=== PATIENT | male | born 1955 | race Caucasian/White ===

== ENCOUNTER → 2016-10-25 | Outpatient (CLI) | payer OTHER ==
[~2016-10-25] MED LIST: ASPI81TA28 PO; LAMO100T16 PO; PRLSR20 PO
--- NOTE | 2016-10-25 10:43 | DIAGNOSTIC IMAGING REPORT ---
RIGHT SHOULDER MIN 2 VIEWS ROUTINE CLINICAL HISTORY: M25.519 Shoulder pain Right pain COMPARISON: None. DISCUSSION: Minimal/mild degenerative changes of the articular surface of the glenoid. Subtle Hill-Sachs type deformity. Minimal degenerative change acromioclavicular joint. No abnormal soft tissue calcifications. There is no evidence for soft tissue swelling. IMPRESSION: Minimal/mild degenerative change. No acute process. Electronically signed by: Samson Paulino M.D. 10/25/2016 10:41 AM Dictated Date/Time: 10/25/2016 10:40 AM
--- NOTE | 2016-10-25 10:45 | DIAGNOSTIC IMAGING REPORT ---
RIGHT KNEE 1 OR 2 VIEWS ROUTINE CLINICAL HISTORY: Chronic right knee pain. COMPARISON: MRI of the right knee since January 05, 2013. FINDINGS: There is mild lateral patellar tilt. There is complete loss of the patellofemoral joint space. Medial and lateral compartment joint spaces are preserved. No fracture or joint effusion is present. There is mild osteophytosis within the medial and lateral compartments with moderate osteophytosis within the patellofemoral compartment. IMPRESSION: 1. Complete loss of the patellofemoral joint space which favors severe osteoarthritis. CPPD arthropathy could appear similar. 2. No acute fracture or joint effusion of the right knee. Electronically signed by: Keenan Appiah M.D. 10/25/2016 10:44 AM Dictated Date/Time: 10/25/2016 10:41 AM
== END | disposition home or self-care (01) ==
LOC: C.RADBC 09:59
PROVIDERS: ATTEND Physician Assistant Medical
DX: M25.561 Pain in right knee (principal); M25.519 Pain in unspecified shoulder; M22.2X1 Patellofemoral disorders, right knee

== ENCOUNTER → 2016-11-11 | Outpatient (CLI) | payer OTHER ==
[2016-11-11 11:40] LABS: ALT/SGPT 28 U/L (12-78); AST/SGOT 19 U/L (15-37); BLOOD UREA NITROGEN 13 mg/dl (7-18); BUN/CREATININE RATIO 12.9 (10-20); CALCIUM 8.8 mg/dl (8.5-10.1); CARBON DIOXIDE 26 mmol/L (21-32); CHLORIDE 109 mmol/L (98-107); CREATININE 0.97 mg/dl (0.60-1.40); GLUCOSE 139 mg/dl (70-99); SODIUM 141 mmol/L (136-145)
[2016-11-11 11:42] LABS: ALB/GLOB RATIO 1.4 (0.9-2); ALKALINE PHOSPHATASE 100 U/L (45-117)
== END | disposition home or self-care (01) ==
LOC: C.LABBC 08:15
PROVIDERS: ATTEND Student in an Organized Health Care Education/Training Program
DX: Z79.899 Other long term (current) drug therapy (principal)

== ENCOUNTER → 2016-11-12 | Outpatient (CLI) | payer OTHER | END | disposition home or self-care (01) | LOC: C.LABBC 11:03 | PROVIDERS: ATTEND Student in an Organized Health Care Education/Training Program | DX: F31.9 Bipolar disorder, unspecified (principal) ==

== ENCOUNTER → 2017-08-20 | Outpatient (CLI) | payer OTHER ==
[~2017-08-20] MED LIST changes: +OPTIRAY 320 IV PRN
--- NOTE | 2017-08-20 10:49 | DIAGNOSTIC IMAGING REPORT ---
CT SCAN OF THE CHEST WITH IV CONTRAST CLINICAL HISTORY: Unspecified abnormal chest x-ray. COMPARISON STUDY: Chest x-ray dated 04/22/2015. Abdominal CT dated 09/28/2008. TECHNIQUE: Following the IV administration of 94 cc of Optiray 320, CT scan of the thorax was performed from the thoracic inlet to the upper abdomen. Images are reviewed in the axial, sagittal, and coronal planes. IV contrast was administered without complication. A dose lowering technique was utilized adhering to the principles of ALARA. CT DOSE: 424.97 mGycm FINDINGS: Thyroid: Imaged portions of the thyroid gland are normal in size and attenuation. Thoracic aorta: The thoracic aorta is normal in caliber and demonstrates standard 3-vessel arch anatomy. No dissection is seen. Pulmonary vasculature: The pulmonary trunk is normal in caliber. There are no filling defects identified in the central pulmonary vessels to indicate pulmonary embolus. Note that this examination was not protocoled for evaluation of the pulmonary arteries. Heart: The heart is top normal in size and without pericardial effusion. There are coronary artery calcifications. Lungs and pleural spaces: The trachea and central airways are clear. There is a bilobed appearing irregular airspace opacity in the subpleural left lower lobe seen on image #163. This measures approximately 6.3 x 2.5 x 3.5 cm in aggregate dimension. No additional pulmonary lesion is seen. The right lung appears clear. No pleural effusion is identified. Mediastinum: There are scattered subcentimeter mediastinal lymph nodes. These are not pathologically enlarged by size criteria. Sandy: Clear. Axillae: There is no axillary lymphadenopathy. Upper abdomen: 11 mm cyst is identified in the upper pole of the right kidney. Additional subcentimeter cortical hypodensity in the right upper pole also likely represents a cyst but is too small for definitive characterization. Diverticulosis is noted in the partially imaged left colon. Skeletal structures: There is a mild compression deformity of T7. No lytic or blastic bony lesions are seen. Arthritic change is noted in the shoulders. IMPRESSION: 1. There is an irregular bilobed airspace opacity in the subpleural left lower lobe which measures approximately 6.3 x 2.5 x 3.5 cm in aggregate dimension. This is pathologically indeterminant, and could represent atelectasis, scarring/fibrosis, pulmonary infarct, an infectious/inflammatory pneumonitis, or neoplasm. Short-term (4-8 week) follow-up chest CT is recommended for reassessment as neoplasm is the diagnosis of exclusion. 2. The right lung appears clear. 3. There is no mediastinal or hilar adenopathy. Electronically signed by: Ganga Brown M.D. 08/20/2017 10:47 AM Dictated Date/Time: 08/20/2017 10:33 AM
== END | disposition home or self-care (01) ==
LOC: C.CTS 10:04
PROVIDERS: ATTEND Nurse Practitioner Family
DX: R93.8 Abnormal findings on diagnostic imaging of other specified body structures (principal)

== ENCOUNTER 2023-07-19 10:20 | Inpatient (IN) ==
[2023-07-19] MEDS: HEPARIN SOD (PORCINE) 1000 UNIT/ML IV ONE (10:23)
--- NOTE | 2023-07-19 10:34 | Emergency Department Note ---
Impression & Plan ST elevation (STEMI) myocardial infarction, Chest pain ED Provider Note HISTORY OF PRESENT ILLNESS: Patient is a 68-year-old male presenting with chest pain. Patient was a prehospital heart alert. He developed substernal chest pain about 30 minutes prior to arrival in the emergency department. 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 He called 911. He has no cardiac history. He takes a baby aspirin daily. He was given 3 sublingual nitro prehospital and a total of 324 mg of aspirin prehospital. On arrival to the ER, he is still complaining of chest pressure. ROS: as above PHYSICAL EXAM: Constitutional: Patient appears in no acute distress. HENT: Head: Normocephalic and atraumatic. Eyes: EOMI, PERRL Mouth/Throat: Mucous membranes moist. Neck: Trachea midline. Neck supple. Cardiovascular: RRR, No murmurs, rubs or gallops. Intact distal pulses. Pulmonary/Chest: No respiratory distress. Breath sounds clear and equal bilaterally. No wheezes or rales. Abdominal: Abdomen soft, no tenderness, rebound or guarding. Musculoskeletal: No edema, tenderness or deformity noted. Skin: Warm and dry. No rash, erythema, pallor or cyanosis Psychiatric: Appropriate mood and affect for situation. Neurological: Alert and keenly responsive. CN II-XII grossly intact, moving all extremities equally and fully. MDM: - Vitals signs showed hypertension. - History obtained via patient. History as above. - Chronic conditions affecting care: pre-diabetes; HLD - Differential diagnoses include, but are not limited to: Acute coronary syndrome; pulmonary embolism; dissection; tension pneumothorax; esophageal rupture; pneumonia - Patient was alerted as a HEART alert pre-hospital. Initial prehospital EKG reviewed by myself showed ST elevations in leads III and depressions in aVL and V2. Patient was still having active chest pain per model artists', so heart alert was activated based on this EKG. A repeat EKG done by the model artists' and route to the hospital showed worsening ST elevation in leads III and worsening depressions in aVL, V1 and V2. - Order placed for continuous cardiac monitoring. At this time, monitor showed rate of 89 bpm with normal sinus rhythm, per my interpretation. - Discussed case with apprentice stylist, Dr. Mayen at 10:15 AM prior to patient's arrival and he reviewed the EKGs. He requested a 5000 mg bolus of heparin be given to patient on arrival. - EKG on arrival to ER at 10:[address] elevation in lead III and aVF, with progressing depressions in leads I and aVL. Patient still having active chest pain on arrival to the ER. Patient was given 5000 mg bolus of heparin. - Discussed with Dr. Mayen if he wanted brilinta pre-cath lab radiology technician, but he wished to hold off. - Patient was given 50 mcg IV fentanyl x2 in ER for chest pain while awaiting cath lab radiology technician team. - Patient taken to cath lab radiology technician at 10:50 AM. - Discussed case with Dr. Osorio with [facility] hospitalist group for admission post- cath. I have personally spent 32 minutes of critical care time in the direct management of this patient. This includes bedside care, interpretation of diagnostic studies, and testing, discussion with consultants, patient, and family members, and other required patient management activities. This 32 minutes is in excess of all separately billable procedures. ASSESSMENT AND PLAN: Diagnosis: STEMI; chest pain Plan: to cath lab radiology technician then admit Past Med/Surg History Medical History Bipolar disorder, unspecified BPH (benign prostatic hyperplasia) SLOW URINE STREAM PER PT Gastro-esophageal reflux History of back problems History of COVID-19 x3; most recent May 12, 2022 > home test > cough, body aches, loss of taste and smell > all resolved Hx of Lyme disease couple years ago, no residual symptoms Hypercholesterolemia BORDERLINE Osteoarthritis Pre-diabetes diet controlled Surgical History History of appendectomy 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 History of colonoscopy History of esophagogastroduodenoscopy (EGD) HX ESOPHAGEAL STRETCHING History of repair of right rotator cuff History of tooth extraction S/P shoulder surgery LEFT SHOULDER 07/30/22 Family History Mother Breast cancer Other Family history of melanoma Denies family history of Colon cancer Ovarian cancer Prostate cancer Myocardial infarction Social History Smoking Status: Never smoker Tobacco Type: Cigarettes packs per day: 2.5; Second Hand Exposure: No; Do You Dip or Chew Tobacco: No; Hx Alcohol Use: Yes Alcohol type: hard liquor Alcohol Intake Frequency: Monthly or Less Hx Substance Use: No Preferred Language: Austrian Communication Ability: Effective Visual Impairment: No Limitations Hearing Ability: Normal Vice President Tax Required: No Beliefs That Will Affect Care: None marital status: Current Living Situation: Spouse, Parent and Family current occupational status: employed 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[employer] How 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 do You have: 5 Feels Safe at Home: Yes Childhood Exposure to Second-Hand Smoke: No Diet: regular caffeine: Yes during the past year weight has: remained stable Dental Care, Regularly: Yes Physical Activity Frequency: Daily Seatbelt Use: always Sunscreen Use: Yes Assistive Devices: Denture - Upper and Glasses Allergies Allergies Allergy/AdvReac Type Severity Reaction Status Date / Time No Known Allergies Allergy Unknown Verified 02/24/23 09:25 Home Meds Home Medications Medication Instructions Recorded Confirmed aspirin 81 mg tablet,delayed 81 mg PO QAM 09/13/19 02/24/23 release (Adult Aspirin Regimen) bupropion HCl 100 mg tablet 100 mg PO BID 09/13/19 02/24/23 ascorbic acid (vitamin C) 500 mg 500 mg PO HS 04/13/21 02/24/23 tablet (Vitamin C) buspirone 10 mg tablet 10 mg PO BID 04/13/21 02/24/23 omega-3 fatty acids 1,000 mg PO QAM 04/13/21 02/24/23 saw palmetto 80 mg capsule 160 mg PO HS 04/13/21 02/24/23 calcium polycarbophil 625 mg 500 mg PO BID 07/19/22 02/24/23 tablet (Fiber-Lax) lactobacillus comb no.10 20 20,000 mmu cells PO QAM 07/19/22 02/24/23 billion cell capsule (Probiotic) mecobalamin (vitamin B12) 1,000 5,000 mcg sublingual Q2D 07/19/22 02/24/23 mcg disintegrating tablet,sublingual vitamin E 400 unit tablet 45 mg PO BID 07/19/22 02/24/23 hydroxyzine HCl 50 mg tablet 50 mg PO HS 02/17/23 02/24/23 lamotrigine 150 mg tablet 150 mg PO BID 02/17/23 02/24/23 (Lamictal) Previous Rx's Medication Instructions Recorded epinephrine 0.3 mg/0.3 mL 0.3 mg (0.3 mL) IM Q10M PRN 08/27/22 injection, auto-injector (EpiPen anaphylaxis #2 ea 2-[place]) pantoprazole 40 mg tablet,delayed 40 mg PO QAM #90 tabs 06/24/23 release Results & Data (ED) Vital Signs Vital Signs - 24 hr 07/19/23 10:12 07/19/23 10:24 07/19/23 10:28 Temperature 36.5 C Temperature Source Oral Pulse Rate 69 89 Respiratory Rate 15 Blood Pressure 141/107 H Blood Pressure Mean 118 Pulse Oximetry 98 Oxygen Delivery Method Room Air Sepsis Recent Fever Within 48 Hours Yes Sepsis New/Unexplained Change in Mental Status No Sepsis Action Taken by Nursing No Action Required 07/19/23 10:28 Temperature Temperature Source Pulse Rate Respiratory Rate Blood Pressure Blood Pressure Mean Pulse Oximetry Oxygen Delivery Method Room Air Sepsis Recent Fever Within 48 Hours Sepsis New/Unexplained Change in Mental Status Sepsis Action Taken by Nursing Laboratory Data 07/19/23 10:31 07/19/23 10:31 Administered Medications Discontinued Medications Fentanyl Citrate (Fentanyl Citrate Pf 100 Mcg/2 Ml Vial) 50 mcg IV NOW STA Stop: 07/19/23 10:42 Last Admin: 07/19/23 10:39 Dose: 50 mcg Documented By: JUAN MANUEL Imaging Data Radiologist's Impression: Chest X-Ray 07/19/23 10:28 XR chest 1V portable CLINICAL HISTORY: Chest pain, nonspecific COMPARISON STUDY: Chest radiograph August 21, 2022. Chest CT April 01, 2023. FINDINGS: Low lung volumes are unchanged. There is no pneumothorax or pleural effusion. A 5 mm right upper lobe nodule is indeterminate but remains unchanged. Stable cardiomediastinal silhouette. There is no evidence for pulmonary edema or pneumonia. IMPRESSION: No acute cardiopulmonary findings. ACT 112: Negative or not required by law. Electronically signed by: Keenan Appiah M.D. 07/19/2023 10:48 AM Discharge Plan Visit Data Chief Complaint: Heart Alert ED Provider: Marla Sterling Discharge Problem: ST elevation (STEMI) myocardial infarction, Chest pain Forms Stand Alone Forms: [facility] [employer] Prescriptions Prescriptions: No Action epinephrine [EpiPen 2-[place]] 0.3 mg/0.3 mL auto-injector 0.3 mg IM Q10M PRN (Reason: anaphylaxis) Qty: 2 0RF Rx Instructions: for 2 doses pantoprazole 40 mg tablet,delayed release (DR/EC) 40 mg PO QAM Qty: 90 3RF aspirin [Adult Aspirin Regimen] 81 mg tablet,delayed release (DR/EC) 81 mg PO QAM bupropion HCl 100 mg tablet 100 mg PO BID saw palmetto 80 mg Capsule 160 mg PO HS ascorbic acid (vitamin C) [Vitamin C] 500 mg Tablet 500 mg PO HS buspirone 10 mg Tablet 10 mg PO BID omega-3 fatty acids Capsule 1,000 mg PO QAM lamotrigine [Lamictal] 150 mg Tablet 150 mg PO BID hydroxyzine HCl 50 mg Tablet 50 mg PO HS mecobalamin (vitamin B12) 1,000 mcg tablet,disintegrating 5,000 mcg sublingual Q2D Rx Instructions: place tablet under tongue and allow to dissolve for at least30 secs before swallowing calcium polycarbophil [Fiber-Lax] 625 mg Tablet 500 mg PO BID vitamin E 400 unit Tablet 45 mg PO BID Probiotic 20 billion cell Capsule 20,000 mmu cells PO QAM Rx Instructions: administer with a meal Referrals Referrals: Joby Saha III, CRNP [Primary Care Provider] -
[2023-07-19] MEDS: fentaNYL citrate PF 100 MCG/2 ML VIAL IV STA ×2 (10:39→10:50)
--- NOTE | 2023-07-19 10:49 | XRay Report ---
XR chest 1V portable CLINICAL HISTORY: Chest pain, nonspecific COMPARISON STUDY: Chest radiograph August 21, 2022. Chest CT April 01, 2023. FINDINGS: Low lung volumes are unchanged. There is no pneumothorax or pleural effusion. A 5 mm right upper lobe nodule is indeterminate but remains unchanged. Stable cardiomediastinal silhouette. There is no evidence for pulmonary edema or pneumonia. IMPRESSION: No acute cardiopulmonary findings. ACT 112: Negative or not required by law. Electronically signed by: Keenan Appiah M.D. 07/19/2023 10:48 AM
[2023-07-19 11:06] LABS: Basophils # (auto) 0.05 K/uL (0.00-0.20); Basophils % (auto) 0.8 %; Eosinophils # (auto) 0.22 K/uL (0.00-0.50); Eosinophils % (auto) 3.5 %; Hemoglobin 15.5 g/dl (14.0-18.0); Immature Granulocytes # (auto) 0.06 K/uL (0.01-0.20); Immature Granulocytes % (auto) 0.9 %; Lymphocytes # (auto) 1.86 K/uL (1.20-3.40); Lymphocytes % (auto) 29.2 %; Mean Corpuscular Hemoglobin 28.8 pg (25.0-34.0); Mean Corpuscular Volume 87.4 fL (80.0-100.0); Mean Platelet Volume 9.7 fL (9.4-12.4); Monocytes # (auto) 0.69 K/uL (0.11-0.59); Monocytes % (auto) 10.8 %; Neutrophils # (auto) 3.49 K/uL (1.40-6.50); Neutrophils % (auto) 54.8 %; Platelet Count 296 K/uL (130-400); Red Blood Count 5.38 M/uL (4.70-6.10); White Blood Count 6.37 K/ul (4.8-10.8)
[2023-07-19 11:14] LABS: Albumin Level 4.4 gm/dl (3.4-5.0); BUN Creatinine Ratio 19.2 (10-20); Bilirubin,Total 0.6 mg/dl (0.2-1.0); Calcium 9.3 mg/dl (8.6-10.3); Creatinine Clr Calc Pharmacy 75.8 ml/min; Est GFR (African American) 91.6 ml/min; Globulin 2.2 gm/dl (2.5-4.0); Magnesium 2.1 mg/dl (1.7-2.4); Potassium 4.4 mmol/L (3.5-5.1); Total Protein 6.6 gm/dl (6.0-8.3)
[2023-07-19 11:19] LABS: Troponin I High Sensitivity 11.5 pg/ml (0-20)
[2023-07-19 11:29] LABS: Thyroid Stimulating Hormone 2.157 uIu/ml (0.300-4.500)
--- NOTE | 2023-07-19 11:33 | Pre Anesthesia Assessment ---
Date of Service July 19, 2023 Pre Sedation Assessment Vital Signs Temp Pulse Resp BP Pulse Ox O2 Del Method 07/19/23 10:45 69 14 97 07/19/23 10:45 157/95 H 07/19/23 10:30 141/107 H 07/19/23 10:30 83 23 98 07/19/23 10:28 Room Air 07/19/23 10:28 Room Air 07/19/23 10:24 81 18 98 07/19/23 10:24 89 07/19/23 10:23 158/99 H 07/19/23 10:12 36.5 C 69 15 141/107 H 98 Cardiovascular RRR, no murmur, no edema Respiratory normal respiratory effort, lungs clear to auscultation Pre-Sedation Airway Assessment Smoking Status: Never smoker Mallampati Class: II Class II Notes The planned sedation has been discussed with the patient. Informed Consent was obtained. I have identified the patient, determined the appropriateness of sedation and have assessed the patient immediately prior to the procedure. All medicine(s) and interventions are by my order.
--- NOTE | 2023-07-19 11:34 | Post Anesthesia Assessment ---
Date of Service July 19, 2023 Post Sedation Assessment Vital Signs Temp Pulse Resp BP Pulse Ox O2 Del Method 07/19/23 10:45 69 14 97 07/19/23 10:45 157/95 H 07/19/23 10:30 141/107 H 07/19/23 10:30 83 23 98 07/19/23 10:28 Room Air 07/19/23 10:28 Room Air 07/19/23 10:24 81 18 98 07/19/23 10:24 89 07/19/23 10:23 158/99 H 07/19/23 10:12 36.5 C 69 15 141/107 H 98 Recovery Score Activity: Moves 4 extremities Respiration: Deep Breath/Cough Circulation: +/-20% PreAnes Value Consciousness: Fully Awake Oxygen Saturation: > 92% On Room Air Discharge Sedation Level of Care: Higher Level of Care Post Sedation Plan On clinical assessment, the patient appears to have tolerated the sedation without complications. Patient is recovering as anticipated. Patient will continue to be monitored by nursing and may be discharged when sedation discharge criteria are met per below protocol. Upon Completions of procedure up to 15 minutes continue every 5 minute vital signs and the P.A.R. score; then discharge to a Phase I or Fast Track to Phase II per the following guidelines: * Discharge Patient to appropriate Phase II area if PAR is 8 or greater or return to pre- procedure baseline. The post - procedure orders will be as directed. * If PAR score is less than 8 or not return to pre-procedure baseline then patient will follow Phase I monitoring till PAR is reached for Phase II. The Phase I may be done in procedure room or may call to secure a Phase I area. * If naloxone or flumazenil are used for reversal, hold in Phase I for c ontinued monitoring from when last reversal dose was given for a minimum of 60 minutes or longer pending the nurse and/or physician discretion of patient condition before discharge to Phase II. Please call the Sedation Physician to re-evaluate and complete post-note for discharge to Phase II area. Do NOT discharge from procedure sedation or Phase 1 until post- sedation evaluation note is complete by procedure /sedation MD Sedation Discharge Instructions to be given to the patient at discharge to home.
[2023-07-19 11:41] LABS: Partial Thromboplastin Ratio > 4.9; Prothrombin Time 10.8 Seconds (9.0-12.0)
--- NOTE | 2023-07-19 11:42 | Cardiac Catheterization ---
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 Cardiac Status Clinical evaluation leading to the procedure CAD Presenation: STEMI Anginal Classification: CCS IV Heart Failure: No Cardiogenic Shock within 24 Hours: No Cardiac Arrest within 24 Hours: No Diagnostic Physicians Name: Moises Mayen MD Closure Device Recommendations: PCI without planned CABG Cardiac Cath Procedure Full Procedure Date July 19, 2023 Pre-Procedure Diagnosis Pre-Procedure Diagnosis: STEMI AUC Score AUC Score: 9 Post-Procedure Diagnosis Post-Procedure Diagnosis: Successful PCI Procedure(s) Performed Procedure(s) Performed: Coronary Angiography and Drug Eluting Stent Registered Massage Therapist Moises Mayen MD Estimated Blood Loss Estimated Blood Loss: None Summary of Findings 68-year-old gentleman with severe substernal crushing chest pain, prehospital EKG showed evidence of inferior ST segment elevations with reciprocal depression s. Emergency cardiac catheterization revealed occluded distal right coronary artery, he had successful PCI performed with placement of 3 mm x 18 mm [place] drug-eluting stent, also had a 80% stenosis in the mid right posterior descending artery had 2.5 mm x 18 mm drug-eluting stent placed in right posterior descending artery. He was also noted to have hazy lesion in his proximal right coronary artery, possible guiding catheter induced dissection in that area which was covered with 4 mm x 15 mm [place] drug-eluting stent. He had excellent angiographic results with SERGIO-3 flow and resolution of his ch est pain symptoms and EKG findings. Left coronary artery circulation showed patent left main artery, mild disease in his left circumflex artery of up to 30% severity. Left anterior descending artery had an eccentric proximal 60 to 70% stenosis with normal flow, diagonal vessel had mid 30% stenosis. LV gram was not performed during the procedure. These findings were discussed with the hospitalist team, patient will be transferred to intensive care unit, he was given Angiomax for the procedure and subsequently loaded with aspirin and Brilinta at the end of the procedure. Hemodynamics Rest Ao:: 159/110 Final Ao: 148/86 LV: not done Recommendations Recommendations: PCI without planned CABG Radiation Exposure (mGy) 1605 Contrast (mls) 120 I attest to the content of the Intraoperative Record and any orders documented therein. Any exceptions are noted below. PG Care Time/CCT Total # of Minutes Spent Total Time Spent with Patient: Total time spent is greater than 50% in coordination of care (as documented) at patient's floor/unit and/or counseling patient:
[2023-07-19 11:48] LABS: Partial Thromboplastin Time > 139 Seconds (21-31)
[2023-07-19] MEDS ORDERED: NITROGLYCERIN SL 0.4 MG/TAB TAB SL PRN (11:48)
[2023-07-19] MEDS: fentaNYL citrate PF 100 MCG/2 ML VIAL ONE ×2 (11:54→12:38)
[2023-07-19] MEDS: OPTIRAY 350 ONE (11:55)
[2023-07-19] MEDS: MIDAZOLAM HCL 1 MG/ML 2ML VIAL ONE (11:55)
[2023-07-19] MEDS: niCARdipine HCL INJ 2.5 MG/ML 10 ML AMP ONE (11:55)
[2023-07-19] MEDS: NITROGLYCERIN/D5W 100MCG/ML 20ML SYR ONE (11:56)
[2023-07-19] MEDS: ONDANSETRON INJ 2 MG/ML 2 ML VIAL ONE (11:57)
[2023-07-19] MEDS: BIVALIRUDIN 250 MG VIAL (CATH LAB ONLY) IV ONE ×2 (11:57→11:58)
[2023-07-19] MEDS: ATROPINE SULFATE 0.1 MG/ML 10ML SYR IV ONE (11:58)
[2023-07-19] MEDS: TICAGRELOR 90 MG TAB ONE (11:58)
--- NOTE | 2023-07-19 12:02 | History & Physical Report ---
Date of Service July 19, 2023 Assessment & Plan (1) ST elevation (STEMI) myocardial infarction: Plan: s/p cardiac catheterization 07/18 with successful PCI to 100% occluded distal RCA with NIMA to distal RCA and x2 NIMA to right PDA ASA, Brillinta, Metoprolol, Atorvastatin Consult cardiology TTE (2) Bipolar disorder, unspecified: Plan: Continue Wellbutrin and Lamictal (3) Gastro-esophageal reflux: Plan: Continue pantoprazole Plan VTE Prophylaxis - dual antiplatelets Diet - heart healthy Disposition - admit to ICU Admission and Anticipated Discharge Date Admission Date: July 19, 2023 History of Present Illness Chief Complaint: Chest pain Primary Care Provider: Joby Saha III, FREDRICK Samson Hooks is a 68-year-old male former smoker who presents to the ER with chest pain radiating to both sides of his chest and left jaw starting at 10 AM this morning. Associated bilateral upper extremity numbness, shortness of breath. No nausea or diaphoresis. Patient was a prehospital heart alert due to ST elevations in inferior leads with reciprocal changes. He was given 324 mg aspirin prior to arrival and x 3.4 nitroglycerin sublingual. In the ER he was taken emergently for cardiac catheterization with 100% occluded RCA and successful PCI with NIMA to RCA and x2 NIMA to PDA. He is chest pain free status post cardiac catheterization. Allergies Allergy/AdvReac Type Severity Reaction Status Date / Time No Known Allergies Allergy Unknown Verified 07/19/23 11:02 Home Medications Medication Instructions Recorded Confirmed Type aspirin 81 mg tablet,delayed 81 mg PO QAM 09/13/19 07/19/23 History release (Adult Aspirin Regimen) bupropion HCl 100 mg tablet 0 mg PO BID 09/13/19 07/19/23 History ascorbic acid (vitamin C) 500 mg 500 mg PO HS 04/13/21 07/19/23 History tablet (Vitamin C) omega-3 fatty acids 1,000 mg PO QAM 04/13/21 07/19/23 History saw palmetto 80 mg capsule 160 mg PO HS 04/13/21 07/19/23 History calcium polycarbophil 625 mg 625 mg PO BID 07/19/22 07/19/23 History tablet (Fiber-Lax) lactobacillus comb no.10 20 20,000 mmu cells PO QAM 07/19/22 07/19/23 History billion cell capsule (Probiotic) mecobalamin (vitamin B12) 1,000 5,000 mcg sublingual Q2D 07/19/22 07/19/23 History mcg disintegrating tablet,sublingual lamotrigine 150 mg tablet 150 mg PO BID 02/17/23 07/19/23 History (Lamictal) pantoprazole 40 mg tablet,delayed 40 mg PO QAM #90 tabs 06/24/23 07/19/23 Rx release buspirone 5 mg tablet 5 mg PO TID PRN Anxiety 07/19/23 07/19/23 History epinephrine 0.3 mg/0.3 mL 0 mg IM Q10M PRN anaphylaxis 07/19/23 07/19/23 History injection, auto-injector (EpiPen 2-[place]) hydroxyzine HCl 10 mg tablet 0 mg PO HS PRN Sleep 07/19/23 07/19/23 History vitamins A,C,I-mtfl-rzidpj 2,148 2 tab PO BID 07/19/23 07/19/23 History mcg-113 mg-45 mg-17.4 mg tablet (PreserVision AREDS) Past Med/Surg History Medical History History of COVID-19 x3; most recent May 12, 2022 > home test > cough, body aches, loss of taste and smell > all resolved Hx of Lyme disease couple years ago, no residual symptoms Pre-diabetes diet controlled History of back problems Osteoarthritis BPH (benign prostatic hyperplasia) SLOW URINE STREAM PER PT Gastro-esophageal reflux Hypercholesterolemia BORDERLINE Bipolar disorder, unspecified Surgical History S/P shoulder surgery LEFT SHOULDER 07/30/22 History of appendectomy History of tooth extraction History of repair of right rotator cuff History of esophagogastroduodenoscopy (EGD) HX ESOPHAGEAL STRETCHING History of colonoscopy 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 Family History Mother Breast cancer Other Family history of melanoma Denies family history of Colon cancer Ovarian cancer Prostate cancer Myocardial infarction Social History (Updated 07/19/23 @ 21:00 by Primo Osorio MD) Smoking Status: Former smoker Tobacco Type: Cigarettes packs per day: 2.5; Second Hand Exposure: No; Do You Dip or Chew Tobacco: No; Hx Alcohol Use: No Hx Substance Use: No Preferred Language: Telugu Communication Ability: Effective Visual Impairment: No Limitations Hearing Ability: Normal Cereal Chemist Required: No Beliefs That Will Affect Care: None marital status: Current Living Situation: Spouse current occupational status: employed 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[employer] How 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 do You have: 5 Feels Safe at Home: No Is there a partner from a previous relationship who is making you feel unsafe now?: No Any Concerns about Your Family Situation: No Would You Like to Speak to Someone About Your Situation: No Childhood Exposure to Second-Hand Smoke: No Diet: regular caffeine: Yes during the past year weight has: remained stable Dental Care, Regularly: Yes Physical Activity Frequency: Daily Seatbelt Use: always Sunscreen Use: Yes Assistive Devices: Denture - Upper and Glasses Review of Systems Review of Systems: All systems reviewed & are unremarkable except as noted in HPI & below Physical Exam Constitutional: WD/WN, vitals as above Eyes: + anicteric sclerae; normal pupil size ENMT: external ear and nose normal, oropharynx normal Respiratory: normal respiratory effort, lungs clear to auscultation Cardiovascular: RRR, no murmur, no edema Vessels: posterior tibial pulses present and dorsalis pedis pulses present Gastrointestinal (Abdomen): normal bowel sounds, soft, nontender, no hepatosplenomegaly Musculoskeletal: no cyanosis or clubbing, extremities motor strength 5/5 Skin: no rashes, warm and dry Neurologic: moves all extremities and awake; not confused Psychiatric: A+Ox3, euthymic affect Genitourinary: no CVA tenderness Results & Data Results & Data Vital Signs (Past 12 Hours) Vital Signs Temp Pulse Resp BP Pulse Ox O2 Del Method 07/19/23 10:45 69 14 97 07/19/23 10:45 157/95 H 07/19/23 10:30 141/107 H 07/19/23 10:30 83 23 98 07/19/23 10:28 Room Air 07/19/23 10:28 Room Air 07/19/23 10:24 81 18 98 07/19/23 10:24 89 07/19/23 10:23 158/99 H 07/19/23 10:12 36.5 C 69 15 141/107 H 98 Laboratory Results Abnormal lab results 07/19/23 07/19/23 Range/Units 10:31 11:21 Gilliam # (Auto) 0.69 H (0.11-0.59) K/uL APTT > 139 H* (21-31) Seconds Activ Coag Time Kaolin > 1000 H (94-140) SECONDS Glucose 133 H (70-99(Fasting)) mg/dl Alkaline Phosphatase 109 H (34-104) U/L Globulin 2.2 L (2.5-4.0) gm/dl Lipase 83 H (11-82) U/L Diagnostic Findings XR chest 1V portable CLINICAL HISTORY: Chest pain, nonspecific COMPARISON STUDY: Chest radiograph August 21, 2022. Chest CT April 01, 2023. FINDINGS: Low lung volumes are unchanged. There is no pneumothorax or pleural effusion. A 5 mm right upper lobe nodule is indeterminate but remains unchanged. Stable cardiomediastinal silhouette. There is no evidence for pulmonary edema or pneumonia. IMPRESSION: No acute cardiopulmonary findings. Medications Administered ER Medications Given: Heparin 5000 units IV bolus Fentanyl 50 mcg IV Normal saline 500ml bolus ECG Rate (beats per minute): 73 Rhythm: normal sinus Findings: + ST elevation (Inferior) Comparison ECG Date: from (July 11, 2022) Change: the following changes noted (ST elevation now present inferiorly with reciprocal changes laterally) Code Status & VTE Plan Code Status Full VTE Prophylaxis Plan VTE Prophylaxis will be ordered: Yes PG Care Time/CCT Total # of Minutes Spent Total Time Spent with Patient: Total time spent is greater than 50% in coordination of care (as documented) at patient's floor/unit and/or counseling patient: Coding Level of Care Code 98345 INT INP/OBS CARE 2/55MIN Diagnoses ST elevation (STEMI) myocardial infarction I21.3 Bipolar disorder, unspecified F31.9 Gastro-esophageal reflux K21.9
--- NOTE | 2023-07-19 12:20 | XRay Report ---
SUPINE PORTABLE AP CHEST RADIOGRAPH CLINICAL HISTORY: Chest pain, nonspecific COMPARISON STUDY: Chest radiograph performed earlier today. FINDINGS: Lung volumes are normal. Lungs are clear. There is no pneumothorax or pleural effusion. Sta ble cardiomediastinal silhouette. There is no evidence for pulmonary edema. IMPRESSION: No acute cardiopulmonary findings. ACT 112: Negative or not required by law. Electronically signed by: Keenan Appiah M.D. 07/19/2023 12:19 PM
[2023-07-19 12:29] LABS: Basophils # (auto) 0.05 K/uL (0.00-0.20); Basophils % (auto) 0.6 %; Eosinophils # (auto) 0.09 K/uL (0.00-0.50); Eosinophils % (auto) 1.1 %; Hematocrit (blood only) 44.3 % (42.0-52.0); Hemoglobin 14.8 g/dl (14.0-18.0); Immature Granulocytes # (auto) 0.06 K/uL (0.01-0.20); Immature Granulocytes % (auto) 0.7 %; Lymphocytes # (auto) 0.96 K/uL (1.20-3.40); Lymphocytes % (auto) 11.5 %; Mean Corpuscular Hemoglobin 29.3 pg (25.0-34.0); Mean Corpuscular Hgb Conc 33.4 g/dL (32.0-36.0); Mean Corpuscular Volume 87.7 fL (80.0-100.0); Mean Platelet Volume 9.5 fL (9.4-12.4); Monocytes # (auto) 0.63 K/uL (0.11-0.59); Monocytes % (auto) 7.5 %; Neutrophils # (auto) 6.57 K/uL (1.40-6.50); Neutrophils % (auto) 78.6 %; Platelet Count 231 K/uL (130-400); RDW Coefficient of Variation 12.9 % (11.5-14.5); RDW Standard Deviation 41.4 fL (36.4-46.3); Red Blood Count 5.05 M/uL (4.70-6.10); White Blood Count 8.36 K/ul (4.8-10.8)
[2023-07-19] MEDS: HEPARIN 25000 UNIT/500 ML D5W IV ONE (12:37)
[2023-07-19] MEDS: SODIUM CHLORIDE 0.9% 500 ML IV ONE (12:38)
[2023-07-19] MEDS: HEPARIN SOD (PORCINE) 1000 UNIT/ML ONE (12:38)
[2023-07-19 12:39] LABS: Albumin Level 4.1 gm/dl (3.4-5.0); BUN Creatinine Ratio 19.8 (10-20); Bilirubin,Total 0.5 mg/dl (0.2-1.0); Calcium 8.6 mg/dl (8.6-10.3); Chol HDL Ratio 4.4 (0-5); Creatinine Clr Calc Pharmacy 73.3 ml/min; Est GFR (African American) 101.4 ml/min; Est GFR (Non-African American) 87.5 ml/min; Potassium 4.3 mmol/L (3.5-5.1); Total Protein 6.1 gm/dl (6.0-8.3)
[2023-07-19] MEDS ORDERED: BIVALIRUDIN 250 MG in DEXTROSE 5% 50 ML IV SCH (12:45)
[2023-07-19] MEDS: ICU Protocol for HYPERglycemia SCH (12:59)
[2023-07-19 13:10] LABS: INR 3.3 (0.9-1.1); Partial Thromboplastin Ratio > 4.9; Prothrombin Time 33.6 Seconds (9.0-12.0)
[2023-07-19 13:16] LABS: Partial Thromboplastin Time > 139 Seconds (21-31)
[2023-07-19] MEDS: ATORVASTATIN 40 MG TAB PO SCH (14:02)
[2023-07-19] MEDS: METOPROLOL TARTRATE 25 MG TAB PO SCH (14:02)
--- NOTE | 2023-07-19 14:09 | Critical Care Consultation ---
Date of Consultation July 19, 2023 Assessment & Plan (1) ST elevation (STEMI) myocardial infarction: Reason Critically Ill: 68-year-old male with ST elevation CO status post successful PCI PLAN: Neuro: Depression and anxiety -Continue Wellbutrin CV: Coronary artery disease -High intensity statin, will likely require beta-rhonda, KENNEDI/ARB/Brilinta/already on 81 mg aspirin GI/Nutrition: History of GERD -Continue outpatient PPI Heme: Mildly elevated PTT -Repeat lab testing reports INR of 3.3, will recheck in a.m. 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 In the emergency department he was found to have a ST elevation CO and was taken emergently to the [facility]. In the [facility] he was found to have an occluded distal right coronary artery with successful PCI of 2 drug-eluting stents. There was also an 80% stenosis of the mid right posterior descending artery which received a stent. Left coronary artery was shown to be patent with mild disease up to 30% severity left anterior descending artery had proximal 60 to 70% stenosis with normal flow. Diagonal had a mid 30% stenosis. He was brought to the ICU for further evaluation and management. He is currently chest pain-free he had 9 out of 10 chest pain prior to the procedure. It was noted to have a approximately 6-9 beat run of nonsustained ventricular tachycardia. Of note patient's postprocedural coagulation profile has been abnormal. I believe that this is not reflective of the patient's current state. I will reorder a PT INR after the patient's infusions complete. Allergies Allergy/AdvReac Type Severity Reaction Status Date / Time No Known Allergies Allergy Unknown Verified 07/19/23 11:02 Home Medications Medication Instructions Recorded Confirmed Type aspirin 81 mg tablet,delayed 81 mg PO QAM 09/13/19 07/19/23 History release (Adult Aspirin Regimen) bupropion HCl 100 mg tablet 0 mg PO BID 09/13/19 07/19/23 History ascorbic acid (vitamin C) 500 mg 500 mg PO HS 04/13/21 07/19/23 History tablet (Vitamin C) omega-3 fatty acids 1,000 mg PO QAM 04/13/21 07/19/23 History saw palmetto 80 mg capsule 160 mg PO HS 04/13/21 07/19/23 History calcium polycarbophil 625 mg 625 mg PO BID 07/19/22 07/19/23 History tablet (Fiber-Lax) lactobacillus comb no.10 20 20,000 mmu cells PO QAM 07/19/22 07/19/23 History billion cell capsule (Probiotic) mecobalamin (vitamin B12) 1,000 5,000 mcg sublingual Q2D 07/19/22 07/19/23 History mcg disintegrating tablet,sublingual lamotrigine 150 mg tablet 150 mg PO BID 02/17/23 07/19/23 History (Lamictal) pantoprazole 40 mg tablet,delayed 40 mg PO QAM #90 tabs 06/24/23 07/19/23 Rx release buspirone 5 mg tablet 5 mg PO TID PRN Anxiety 07/19/23 07/19/23 History epinephrine 0.3 mg/0.3 mL 0 mg IM Q10M PRN anaphylaxis 07/19/23 07/19/23 History injection, auto-injector (EpiPen 2-[place]) hydroxyzine HCl 10 mg tablet 0 mg PO HS PRN Sleep 07/19/23 07/19/23 History vitamins A,C,Q-qked-ffobrl 2,148 2 tab PO BID 07/19/23 07/19/23 History mcg-113 mg-45 mg-17.4 mg tablet (PreserVision AREDS) Patient History Medical History History of COVID-19 x3; most recent May 12, 2022 > home test > cough, body aches, loss of taste and smell > all resolved Hx of Lyme disease couple years ago, no residual symptoms Pre-diabetes diet controlled History of back problems Osteoarthritis BPH (benign prostatic hyperplasia) SLOW URINE STREAM PER PT Gastro-esophageal reflux Hypercholesterolemia BORDERLINE Bipolar disorder, unspecified Surgical History S/P shoulder surgery LEFT SHOULDER 07/30/22 History of appendectomy History of tooth extraction History of repair of right rotator cuff History of esophagogastroduodenoscopy (EGD) HX ESOPHAGEAL STRETCHING History of colonoscopy 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 Family History Mother Breast cancer Other Family history of melanoma Denies family history of Colon cancer Ovarian cancer Prostate cancer Myocardial infarction Social History Smoking Status: Never smoker Tobacco Type: Cigarettes packs per day: 2.5; Second Hand Exposure: No; Do You Dip or Chew Tobacco: No; Hx Alcohol Use: No Hx Substance Use: No Preferred Language: French Communication Ability: Effective Visual Impairment: No Limitations Hearing Ability: Normal Standards Engineer Required: No Beliefs That Will Affect Care: None marital status: Current Living Situation: Spouse 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 occupational 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: employed 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 Other Information That Helps Us Care for You: No Feels Safe at Home: No Is there a partner from a previous relationship who is making you feel unsafe now?: No Any Concerns about Your Family Situation: No Would You Like to Speak to Someone About Your Situation: No Safety Concerns: Feels Safe At This Time Childhood Exposure to Second-Hand Smoke: No Diet: regular caffeine: Yes during the past year weight has: remained stable Dental Care, Regularly: Yes Physical Activity Frequency: Daily Seatbelt Use: always Sunscreen Use: Yes Assistive Devices: Denture - Upper and Glasses Physical Exam Physical Exam: General: Alert. nontoxic. Skin: Warm, dry, Head: Atraumatic Ears, nose, mouth and throat: airway patent Cardiovascular: Normal peripheral perfusion Respiratory: no respiratory distress Gastrointestinal: Non distended Musculoskeletal: No deformity Results & Data Results & Data Vital Signs (Past 12 Hours) Vital Signs Temp Pulse Pulse Resp BP BP Pulse Ox 07/19/23 12:45 68 17 140/78 99 07/19/23 12:30 86 21 146/84 H 94 07/19/23 12:15 68 20 142/84 H 95 07/19/23 12:15 07/19/23 12:00 75 12 149/84 H 96 07/19/23 11:56 36.7 C 74 12 130/96 95 07/19/23 10:45 69 14 97 07/19/23 10:45 157/95 H 07/19/23 10:30 141/107 H 07/19/23 10:30 83 23 98 07/19/23 10:28 07/19/23 10:28 07/19/23 10:24 81 18 98 07/19/23 10:24 89 07/19/23 10:23 158/99 H 07/19/23 10:12 36.5 C 69 15 141/107 H 98 O2 Del Method 07/19/23 12:45 Room Air 07/19/23 12:30 Room Air 07/19/23 12:15 Room Air 07/19/23 12:15 Room Air 07/19/23 12:00 Room Air 07/19/23 11:56 Room Air 07/19/23 10:45 07/19/23 10:45 07/19/23 10:30 07/19/23 10:30 07/19/23 10:28 Room Air 07/19/23 10:28 Room Air 07/19/23 10:24 07/19/23 10:24 07/19/23 10:23 07/19/23 10:12 Critical Care Results & Data Vital Signs (Past 12 Hours) Vital Signs Temp Pulse Pulse Resp BP BP Pulse Ox 07/19/23 13:45 84 19 146/93 H 96 07/19/23 13:30 79 23 126/86 98 07/19/23 13:15 69 20 154/92 H 98 07/19/23 13:00 77 14 140/78 96 07/19/23 12:45 68 17 140/78 99 07/19/23 12:30 86 21 146/84 H 94 07/19/23 12:15 68 20 142/84 H 95 07/19/23 12:15 07/19/23 12:00 75 12 149/84 H 96 07/19/23 11:56 36.7 C 74 12 130/96 95 07/19/23 10:45 69 14 97 07/19/23 10:45 157/95 H 07/19/23 10:30 141/107 H 07/19/23 10:30 83 23 98 07/19/23 10:28 07/19/23 10:28 07/19/23 10:24 81 18 98 07/19/23 10:24 89 07/19/23 10:23 158/99 H 07/19/23 10:12 36.5 C 69 15 141/107 H 98 O2 Del Method 07/19/23 13:45 Room Air 07/19/23 13:30 Room Air 07/19/23 13:15 Room Air 07/19/23 13:00 Room Air 07/19/23 12:45 Room Air 07/19/23 12:30 Room Air 07/19/23 12:15 Room Air 07/19/23 12:15 Room Air 07/19/23 12:00 Room Air 07/19/23 11:56 Room Air 07/19/23 10:45 07/19/23 10:45 07/19/23 10:30 07/19/23 10:30 07/19/23 10:28 Room Air 07/19/23 10:28 Room Air 07/19/23 10:24 07/19/23 10:24 07/19/23 10:23 07/19/23 10:12 Lab & Micro Results (Past 24 Hours) RBC 5.05 M/uL (4.70-6.10) 07/19/23 WBC 8.36 K/ul (4.8-10.8) 07/19/23 Hgb 14.8 g/dl (14.0-18.0) 07/19/23 Hct 44.3 % (42.0-52.0) 07/19/23 MCV 87.7 fL (80.0-100.0) 07/19/23 MCH 29.3 pg (25.0-34.0) 07/19/23 MCHC 33.4 g/dL (32.0-36.0) 07/19/23 RDW Standard Deviation 41.4 fL (36.4-46.3) 07/19/23 RDW Coefficient of Variation 12.9 % (11.5-14.5) 07/19/23 Plt Count 231 K/uL (130-400) 07/19/23 MPV 9.5 fL (9.4-12.4) 07/19/23 Neutrophils (%) (Auto) 78.6 % 07/19/23 Lymphocytes (%) (Auto) 11.5 % 07/19/23 Monocytes # (Auto) 0.63 K/uL (0.11-0.59) H 07/19/23 Eosinophils # (Auto) 0.09 K/uL (0.00-0.50) 07/19/23 Immature Granulocyte % (Auto) 0.7 % 07/19/23 Neutrophils # (Auto) 6.57 K/uL (1.40-6.50) H 07/19/23 Lymphocytes # (Auto) 0.96 K/uL (1.20-3.40) L 07/19/23 Monocytes # (Auto) 0.63 K/uL (0.11-0.59) H 07/19/23 Eosinophils # (Auto) 0.09 K/uL (0.00-0.50) 07/19/23 Basophils # (Auto) 0.05 K/uL (0.00-0.20) 07/19/23 Immature Granulocyte # (Auto) 0.06 K/uL (0.01-0.20) 4 Na 138 mmol/L (136-145) 07/19/23 K 4.3 mmol/L (3.5-5.1) 07/19/23 Cl 107 mmol/L (98-107) 07/19/23 CO2 26 mmol/L (21-32) 07/19/23 Anion Gap 5 (3-11) 07/19/23 BUN 18 mg/dl (6-23) 07/19/23 Creatinine 0.91 mg/dl (0.6-1.4) 07/19/23 Estimated GFR ( Amer) 101.4 ml/min 07/19/23 Estimated GFR (Non-Af Amer) 87.5 ml/min 07/19/23 BUN/Creatinine Ratio 19.8 (10-20) 07/19/23 Glu 116 mg/dl (70-99(Fasting)) H 07/19/23 Ca 8.6 mg/dl (8.6-10.3) 07/19/23 Total Bilirubin 0.5 mg/dl (0.2-1.0) 07/19/23 AST 28 U/L (13-39) 07/19/23 ALT 22 U/L (7-52) 07/19/23 Alkaline Phosphatase 103 U/L (34-104) 07/19/23 TP 6.1 gm/dl (6.0-8.3) 07/19/23 Albumin 4.1 gm/dl (3.4-5.0) 07/19/23 Globulin 2.0 gm/dl (2.5-4.0) L 07/19/23 Albumin/Globulin Ratio 2.0 (0.9-2) 07/19/23 Mg 2.1 mg/dl (1.7-2.4) 07/19/23 10:31 Calcium Level 8.6 mg/dl (8.6-10.3) 07/19/23 12:01 Prothromb Time International Ratio 3.3 (0.9-1.1) H 07/19/23 12 :01 Diagnostic Findings (Past 24 Hours) Chest X-Ray 07/19/23 10:28 XR chest 1V portable CLINICAL HISTORY: Chest pain, nonspecific COMPARISON STUDY: Chest radiograph August 21, 2022. Chest CT April 01, 2023. FINDINGS: Low lung volumes are unchanged. There is no pneumothorax or pleural effusion. A 5 mm right upper lobe nodule is indeterminate but remains unchanged. Stable cardiomediastinal silhouette. There is no evidence for pulmonary edema or pneumonia. IMPRESSION: No acute cardiopulmonary findings. ACT 112: Negative or not required by law. Electronically signed by: Keenan Appiah M.D. 07/19/2023 10:48 AM Chest X-Ray 07/19/23 11:48 SUPINE PORTABLE AP CHEST RADIOGRAPH CLINICAL HISTORY: Chest pain, nonspecific COMPARISON STUDY: Chest radiograph performed earlier today. FINDINGS: Lung volumes are normal. Lungs are clear. There is no pneumothorax or pleural effusion. Stable cardiomediastinal silhouette. There is no evidence for pulmonary edema. IMPRESSION: No acute cardiopulmonary findings. ACT 112: Negative or not required by law. Electronically signed by: Keenan Appiah M.D. 07/19/2023 12:19 PM RT Ventilator Mngmt (Last Documented) Ventilator Ordered Settings Respiratory Rate 19 07/19/23 13:45 Ventilator - PT Measurements Respiratory Rate 19 Coding Level of Care Code 37044 IN/OBS CONSULT LVL 5,80M Diagnoses ST elevation myocardial infarction involving right coronary artery I21.11 Involved coronary artery: right coronary artery Hypercholesteremia E78.00 (1) ST elevation (STEMI) myocardial infarction Involved coronary artery: right coronary artery Qualified Code(s): I21.11 - ST elevation (STEMI) myocardial infarction involving right coronary artery
[2023-07-19] MEDS: lamoTRIgine 100 MG TAB PO SCH (20:18)
[2023-07-19] MEDS: TICAGRELOR 90 MG TAB PO SCH (20:18)
[2023-07-19] MEDS: hydrOXYzine HCl 10 MG TAB PO PRN (20:20)
[2023-07-19] MEDS: ACETAMINOPHEN 325 MG TAB PO PRN (20:20)
[2023-07-19 20:35] LABS: Partial Thromboplastin Ratio 1.3; Partial Thromboplastin Time 36 Seconds (21-31); Prothrombin Time 10.8 Seconds (9.0-12.0)
[2023-07-19] MEDS ORDERED: SAW PALMETTO 80 MG PO SCH (21:00)
[2023-07-20 01:49] LABS: Magnesium 2.1 mg/dl (1.7-2.4)
[2023-07-20 08:16] LABS: Basophils # (auto) 0.06 K/uL (0.00-0.20); Basophils % (auto) 0.6 %; Eosinophils # (auto) 0.21 K/uL (0.00-0.50); Eosinophils % (auto) 2.1 %; Hematocrit (blood only) 45.5 % (42.0-52.0); Hemoglobin 15.3 g/dl (14.0-18.0); Immature Granulocytes # (auto) 0.06 K/uL (0.01-0.20); Immature Granulocytes % (auto) 0.6 %; Lymphocytes % (auto) 16.3 %; Mean Corpuscular Hemoglobin 29.3 pg (25.0-34.0); Mean Corpuscular Hgb Conc 33.6 g/dL (32.0-36.0); Mean Platelet Volume 9.3 fL (9.4-12.4); Monocytes % (auto) 8.2 %; Neutrophils # (auto) 7.08 K/uL (1.40-6.50); Neutrophils % (auto) 72.2 %; Platelet Count 276 K/uL (130-400); RDW Coefficient of Variation 13.2 % (11.5-14.5); RDW Standard Deviation 41.6 fL (36.4-46.3); Red Blood Count 5.23 M/uL (4.70-6.10); White Blood Count 9.81 K/ul (4.8-10.8)
[2023-07-20] MEDS: ASPIRIN 81 MG ECTAB PO SCH (08:27)
[2023-07-20] MEDS: buPROPion HCl 100 MG TABLET PO SCH (08:28)
[2023-07-20] MEDS: PANTOprazole 40 MG TAB PO SCH (08:29)
[2023-07-20] MEDS: busPIRone 5 MG TAB PO PRN (08:30)
--- NOTE | 2023-07-20 08:37 | Electrocardiogram Report ---
Test Reason : Blood Pressure : / mmHG Vent. Rate : 073 BPM Atrial Rate : 073 BPM P-R Int : 188 ms QRS Dur : 096 ms QT Int : 364 ms P-R-T Axes : 018 034 075 degrees QTc Int : 401 ms Normal sinus rhythm Acute Inferior infarct Consider right ventricular involvement in acute inferior infarct Abnormal ECG When compared with ECG of 11-JUL-2022 13:21, ST elevation now present in Inferior leads ST now depressed in Lateral leads Confirmed by Leroy Dyson ([id number]) on 07/20/2023 8:37:02 AM Referred By: Primo Osorio Confirmed By:Leroy Dyson
--- NOTE | 2023-07-20 08:43 | Electrocardiogram Report ---
Test Reason : Blood Pressure : / mmHG Vent. Rate : 064 BPM Atrial Rate : 064 BPM P-R Int : 172 ms QRS Dur : 086 ms QT Int : 410 ms P-R-T Axes : 042 026 024 degrees QTc Int : 422 ms Normal sinus rhythm Normal ECG When compared with ECG of 10:25; ST elevation in Inferior leads no longer present ST depression in Lateral leads no longer present Confirmed by Leroy Dyson ([id number]) on 07/20/2023 8:42:42 AM Referred By: Primo Osorio Confirmed By:Leroy Dyson
[2023-07-20 08:46] LABS: Albumin Level 4.2 gm/dl (3.4-5.0); Bilirubin,Total 0.9 mg/dl (0.2-1.0); Magnesium 2.1 mg/dl (1.7-2.4); Potassium 4.4 mmol/L (3.5-5.1)
[2023-07-20 08:52] LABS: BUN Creatinine Ratio 21.3 (10-20); Est GFR (African American) 103.3 ml/min; Est GFR (Non-African American) 89.1 ml/min; Globulin 2.1 gm/dl (2.5-4.0); Phosphorus 2.3 mg/dl (2.5-4.9); Total Protein 6.3 gm/dl (6.0-8.3)
--- NOTE | 2023-07-20 09:54 | Hospitalist Progress Note ---
Date of Service July 20, 2023 Assessment & Plan (1) ST elevation (STEMI) myocardial infarction: Plan: 68 y/o with obesity, prediabetes presented with inferior STEMI. Had immediate coronary angiogram 07/18 with successful PCI to 100% occluded distal RCA with NIMA to distal RCA and x2 NIMA to right PDA Continue ASA, Brillinta, Metoprolol, Atorvastatin Consulted cardiology - discussed with Dr. Dyson - Echo today favorable, I reviewed EKG tracing from this AM and inferior ST elevations have resolved, HS- Tn downtrending from 20K-->17K, BNP low -continue meds as above, HR in 50s on current dose of metoprolol, tolerating -monitor tele, electrolytes, AM BMP mag -potential discharge tomorrow -transfer out of ICU Dyspnea - reported episodes today. Obtained EKG and reviewed tracing with Dr. Dyson, slight LATONYA in III now with TWI in that lead, LATONYA in II and F remain resolved, reciprocal depressions in lateral leads remain resolved, repeat trop still downtrending. 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 Related to mild ischemia from STEMI should resolve Lipids - LDL 150s, initiated high intensity statin for STEMI TSH wnl VTE Prophylaxis - dual antiplatelets, ambulation Admission and Anticipated Discharge Date Admission Date: July 19, 2023 Subjective Feels much better, chest pain resolved Midmorning reported episodes of dyspnea Physical Exam 2 Physical Exam: PHYSICAL EXAMINATION Last 24h vital signs reviewed, see documentation in flowsheet General: comfortable appearing, no distress, sitting up on bed HEENT: Normocephalic, atraumatic, pupils round and equal, sclerae anicteric, no conjunctival injection, moist mucus membranes Lungs: Normal respiratory effort. Clear to auscultation bilaterally. No RRW Heart: Regular rate and rhythm, no murmurs. No JVD Abdomen: nondistended. Bowel sounds present. Extremities: Warm, dry, well-perfused. No extremity edema. right femoral access site no hematoma or swelling no bruit Neuro: Alert and oriented x 4, face symmetric, moves 4 extremities well Psych: Normal affect and behavior Results & Data Results & Data Vital Signs (Past 12 Hours) Vital Signs Temp Pulse Resp BP Pulse Ox O2 Del Method 07/20/23 07:08 56 L 17 111/70 94 Room Air 07/20/23 07:00 53 L 17 121/71 93 Room Air 07/20/23 06:00 96/54 L 07/20/23 06:00 57 L 17 90 07/20/23 05:22 111/62 07/20/23 05:22 58 L 18 92 07/20/23 05:00 68 15 93 07/20/23 05:00 83/55 L 07/20/23 04:37 36.9 C 07/20/23 04:00 55 L 16 96 07/20/23 04:00 125/73 07/20/23 03:00 100/61 07/20/23 03:00 53 L 17 95 07/20/23 02:01 56 L 07/20/23 02:01 99/55 L 07/20/23 01:00 57 L 19 90 07/20/23 01:00 96/44 L 07/20/23 00:00 94/62 L 07/20/23 00:00 59 L 18 90 07/20/23 00:00 56 L 07/19/23 23:46 36.8 C 07/19/23 23:00 58 L 18 92 07/19/23 23:00 90/53 L 07/19/23 22:00 103/70 07/19/23 22:00 61 19 94 Laboratory Results 07/20/23 07:52 07/20/23 07:52 PG Care Time/CCT Total # of Minutes Spent Total Time Spent with Patient: Total time spent is greater than 50% in coordination of care (as documented) at patient's floor/unit and/or counseling patient: Coding Level of Care Code 73108 SUB INP/OBS CARE 3/50MIN Diagnoses ST elevation myocardial infarction involving right coronary artery I21.11 Involved coronary artery: right coronary artery Bipolar disorder, unspecified F31.9 Gastro-esophageal reflux K21.9 (1) ST elevation (STEMI) myocardial infarction Involved coronary artery: right coronary artery Qualified Code(s): I21.11 - ST elevation (STEMI) myocardial infarction involving right coronary artery
--- NOTE | 2023-07-20 12:27 | XCELERA ---
[id number]
[2023-07-20 12:28] LABS: Basophils # (auto) 0.06 K/uL (0.00-0.20); Basophils % (auto) 0.7 %; Eosinophils # (auto) 0.25 K/uL (0.00-0.50); Eosinophils % (auto) 2.9 %; Hematocrit (blood only) 44.2 % (42.0-52.0); Immature Granulocytes # (auto) 0.05 K/uL (0.01-0.20); Immature Granulocytes % (auto) 0.6 %; Lymphocytes % (auto) 19.7 %; Mean Corpuscular Hemoglobin 29.7 pg (25.0-34.0); Mean Corpuscular Hgb Conc 33.9 g/dL (32.0-36.0); Mean Corpuscular Volume 87.5 fL (80.0-100.0); Mean Platelet Volume 9.4 fL (9.4-12.4); Monocytes # (auto) 1.01 K/uL (0.11-0.59); Monocytes % (auto) 11.7 %; Neutrophils # (auto) 5.54 K/uL (1.40-6.50); Neutrophils % (auto) 64.4 %; Platelet Count 278 K/uL (130-400); RDW Coefficient of Variation 13.2 % (11.5-14.5); RDW Standard Deviation 41.6 fL (36.4-46.3); Red Blood Count 5.05 M/uL (4.70-6.10); White Blood Count 8.61 K/ul (4.8-10.8)
--- NOTE | 2023-07-20 14:01 | Cardiology Progress Note ---
Date of Service July 20, 2023 Assessment & Plan (1) Acute inferior myocardial infarction: (2) Presence of drug-eluting stent in right coronary artery: (3) Dyspnea: Plan Uncomplicated post PCI course after inferior wall AZ yesterday. No recurrent angina, heart failure, or significant dysrhythmias. Transient ventricular dysrhythmias likely reperfusion related, quiescent since midnight. Continue on telemetry throughout today, likely discharge home tomorrow. His breathing symptoms were not actually dyspnea but they "need to take a deep breath", a common side effect of ticagrelor. Unless they become more bothersome, would continue ticagrelor for at least 30 days, could then switch to clopidogrel. Continue beta-rhonda for postinfarct status, could reduce metoprolol to tartrate to 12.5 mg twice daily given relative bradycardia and low normal blood pressure, then discharged on metoprolol succinate 25 mg daily. Continue aspirin and ticagrelor (or clopidogrel) for at least 1 year. Continue atorvastatin 40 mg daily, check lipid profile as outpatient and titrate to LDL less than 70. Ejection fraction preserved, no need for KENNEDI inhibitor/ARB, carvedilol, etc. Will enroll in a at least a brief course of cardiac rehab (2 weeks), I will arrange. If he feels well overnight and has no significant dysrhythmias or other complications, could be discharged home tomorrow. I would be glad to see you in follow-up in 1 to 2 months (I will arrange). Admission and Anticipated Discharge Date Admission Date: July 19, 2023 Subjective Uneventful night. He feels well this morning, no chest pain, dyspnea, or palpitations. Echocardiogram showed low normal systolic function (EF 50-55% low normal LV systolic open EF 50-55%) with mild to moderate inferobasal hypokinesis, all other gilman move normally. Mild MR, normal RVSP. Sometime after I evaluated him this morning he noted a sense of "needing to take a deep breath", I stopped back to reevaluate and he felt well. Denies actual dyspnea, oxygen saturation 97%, respiratory rate 13/minute. Telemetry showed sinus rhythm with short (3-5 beat) runs of ventricular tachyca rdia yesterday and last evening, few short runs of accelerated idioventricular beats. Sinus rhythm without significant dysrhythmias since midnight. Physical Exam Physical Exam: No distress. Afebrile. BP normotensive. Pulse 55 bpm and regular. Respirations 13 unlabored Skin: no ecchymoses or generalized lesions. HEENT: unremarkable. Neck: JVP at the clavicle at 90 degrees, no carotid bruits. Lungs: clear. Cardiac: regular rhythm, normal S1-2, no murmur. Abdomen: benign. Extremities: no edema, pulses intact. Neurologic: normal affect and conversation, nonfocal. Results & Data Laboratory Results Troponin peak 23,320, dropped to 13,931 today. Normal electrolytes, BUN 19, creatinine 0.89. Diagnostic Findings Echocardiogram as noted. ECG (obtained after he complained of needing to take a deep breath) showed sinus rhythm with minimal inferior ST elevation in leads III and aVF, otherwise isoelectric ST segments. Compared with prior ECG, minimal inferior ST elevation slightly more apparent, otherwise no significant change. PG Care Time/CCT Total # of Minutes Spent Total Time Spent with Patient: Total time spent is greater than 50% in coordination of care (as documented) at patient's floor/unit and/or counseling patient: Coding Level of Care Code 86251 SUB INP/OBS CARE 3/50MIN Diagnoses Acute inferior myocardial infarction I21.19 Presence of drug-eluting stent in right coronary artery Z95.5 Dyspnea R06.00
--- NOTE | 2023-07-20 14:55 | Electrocardiogram Report ---
Test Reason : Blood Pressure : / mmHG Vent. Rate : 054 BPM Atrial Rate : 054 BPM P-R Int : 178 ms QRS Dur : 084 ms QT Int : 414 ms P-R-T Axes : 011 000 001 degrees QTc Int : 392 ms Sinus bradycardia Recent Inferior infarct Abnormal ECG When compared with ECG of 19-JUL-2023 14:05, Minor ST elevation in Inferior leads now present Otherwise no significant change Confirmed by Leroy Dyson ([id number]) on 07/20/2023 2:55:31 PM Referred By: Primo Osorio Confirmed By:Leroy Dyson
[2023-07-21 05:07] LABS: BUN Creatinine Ratio 17.8 (10-20); Calcium 8.7 mg/dl (8.6-10.3); Creatinine Clr Calc Pharmacy 65.2 ml/min; Est GFR (African American) 89.4 ml/min; Est GFR (Non-African American) 77.1 ml/min; Potassium 4.2 mmol/L (3.5-5.1)
[2023-07-21] MEDS: METOPROLOL SUCC 25MG EXT REL TAB PO SCH (08:00)
--- NOTE | 2023-07-21 11:53 | Cardiology Progress Note ---
Date of Service July 21, 2023 Assessment & Plan (1) Acute inferior myocardial infarction: Plan: -high sensitivity troponin peaked at 23,320. -EKG now notes subacute inferior wall GA. -s/p RCA NIMA x2, right PDA NIMA x1. -continue aspirin, Brilinta, metoprolol succinate, and atorvastatin. -Dr. Dyson to arrange cardiac rehab and a follow-up visit in the office. -stable for hospital discharge. (2) Presence of drug-eluting stent in right coronary artery: Plan: -as above. (3) Dyspnea: Plan: -may be secondary to Brilinta. -Dr. Dyson will address as an outpatient. Plan Uncomplicated post PCI course after inferior wall GA yesterday. No recurrent angina, heart failure, or significant dysrhythmias. Transient ventricular dysrhythmias likely reperfusion related, quiescent since midnight. Continue on telemetry throughout today, likely discharge home tomorrow. His breathing symptoms were not actually dyspnea but they "need to take a deep breath", a common side effect of ticagrelor. Unless they become more both ersome, would continue ticagrelor for at least 30 days, could then switch to clopidogrel. Continue beta-rhonda for postinfarct status, could reduce metoprolol to tartrate to 12.5 mg twice daily given relative bradycardia and low normal blood pressure, then discharged on metoprolol succinate 25 mg daily. Continue aspirin and ticagrelor (or clopidogrel) for at least 1 year. Continue atorvastatin 40 mg daily, check lipid profile as outpatient and titrate to LDL less than 70. Ejection fraction preserved, no need for KENNEDI inhibitor/ARB, carvedilol, etc. Will enroll in a at least a brief course of cardiac rehab (2 weeks), I will arrange. If he feels well overnight and has no significant dysrhythmias or other complications, could be discharged home tomorrow. I would be glad to see you in follow-up in 1 to 2 months (I will arrange). Admission and Anticipated Discharge Date Admission Date: July 19, 2023 Subjective The patient is resting comfortably in bed without complaints of chest pain or dyspnea. He is anxious for hospital discharge. Physical Exam Physical Exam: In general this is a well-developed well-nourished white male in no acute d istress. HEENT exam is negative. Neck is supple with full carotid upstrokes. There are no carotid bruits. Jugular venous pressure is flat at 90. There is no thyromegaly. Cardiovascular exam reveals a regular rhythm with a normal S1 and S2. No S3, S4, or murmurs are noted. Lungs are clear without rales, rhonchi, or wheezes. Abdomen is soft and nontender without bruits. Extremities reveal intact radial artery and posterior tibial pulses bilaterally. There is no peripheral edema. Results & Data Vital Signs (Past 12 Hours) Vital Signs Temp Pulse Pulse Resp BP Pulse Ox O2 Del Method 07/21/23 11:24 36.6 C 62 19 125/70 99 07/21/23 10:00 64 19 07/21/23 08:07 71 19 07/21/23 07:20 36.6 C 58 L 14 125/70 99 Room Air 07/21/23 04:00 36.6 C 60 19 113/55 L 96 Room Air 07/21/23 00:00 36.7 C 58 L 17 89/48 L 94 Room Air Diagnostic Findings monitoring analyst notes sinus rhythm. No further ventricular tachycardia. PG Care Time/CCT Total # of Minutes Spent Total Time Spent with Patient: Total time spent is greater than 50% in coordination of care (as documented) at patient's floor/unit and/or counseling patient: Coding Level of Care Code 94971 SUB INP/OBS CARE 3/50MIN Diagnoses Acute inferior myocardial infarction I21.19 Presence of drug-eluting stent in right coronary artery Z95.5 Dyspnea R06.00
[2023-07-21 13:45] LABS: Basophils # (auto) 0.06 K/uL (0.00-0.20); Basophils % (auto) 0.7 %; Eosinophils # (auto) 0.37 K/uL (0.00-0.50); Eosinophils % (auto) 4.5 %; Hematocrit (blood only) 43.7 % (42.0-52.0); Hemoglobin 14.7 g/dl (14.0-18.0); Immature Granulocytes # (auto) 0.06 K/uL (0.01-0.20); Immature Granulocytes % (auto) 0.7 %; Lymphocytes # (auto) 1.54 K/uL (1.20-3.40); Lymphocytes % (auto) 18.8 %; Mean Corpuscular Hemoglobin 29.5 pg (25.0-34.0); Mean Corpuscular Hgb Conc 33.6 g/dL (32.0-36.0); Mean Corpuscular Volume 87.8 fL (80.0-100.0); Mean Platelet Volume 9.7 fL (9.4-12.4); Monocytes # (auto) 0.84 K/uL (0.11-0.59); Monocytes % (auto) 10.3 %; Platelet Count 247 K/uL (130-400); RDW Standard Deviation 41.5 fL (36.4-46.3); Red Blood Count 4.98 M/uL (4.70-6.10); White Blood Count 8.17 K/ul (4.8-10.8)
--- NOTE | 2023-07-21 17:32 | Discharge Summary ---
Date of Service July 21, 2023 Admission HPI Per Admitting Provider Samson Hooks is a 68-year-old male former smoker who presents to the ER with chest pain radiating to both sides of his chest and left jaw starting at 10 AM this morning. Associated bilateral upper extremity numbness, shortness of breath. No nausea or diaphoresis. Patient was a prehospital heart alert due to ST elevations in inferior leads with reciprocal changes. He was given 324 mg aspirin prior to arrival and x 3.4 nitroglycerin sublingual. In the ER he was taken emergently for cardiac catheterization with 100% occluded RCA and successful PCI with NIMA to RCA and x2 NIMA to PDA. He is chest pain free status post cardiac catheterization. Principal Diagnosis Inferior STEMI Discharge Exam PHYSICAL EXAMINATION Last 24h vital signs reviewed, see documentation in flowsheet General: comfortable appearing, no distress, walking in room HEENT: Normocephalic, atraumatic, pupils round and equal, sclerae anicteric, no conjunctival injection, moist mucus membranes Lungs: Normal respiratory effort. Clear to auscultation bilaterally. No RRW Heart: Regular rate and rhythm, no murmurs. No JVD Abdomen: nondistended. Extremities: Warm, dry, well-perfused. No extremity edema. Neuro: Alert and oriented x 4, face symmetric, moves 4 extremities well Psych: Normal affect and behavior Discharge Data Allergies Allergy/AdvReac Type Severity Reaction Status Date / Time No Known Allergies Allergy Unknown Verified 07/19/23 11:02 Consultations 07/19/23 11:40 Consult Stranding Supervisor Routine 07/19/23 12:12 Consult Cardiology Stat Procedures Performed Operation Date: 07/19/23 10:30 Actual Procedures p Cineradiography w/Routine Exam - Moises Mayen MD p Cath, Coronaries ONLY (no LV) - Moises Mayen MD s Drug Eluting Stent SGl Vessel - Moises Mayen MD p Aspiration/PCI w/NIMA for Stemi - Moises Mayen MD Ordered Studies 07/19/23 10:39 CL Cath Imgs for PACS use only Stat 07/21/23 04:13 07/21/23 04:09 Hospital Course (1) ST elevation (STEMI) myocardial infarction: 68 y/o with obesity, prediabetes presented with inferior STEMI. Had immediate coronary angiogram 07/18 with successful PCI to 100% occluded distal RCA with NIMA to distal RCA and x2 NIMA to right PDA Did well following PCI. Has some post-procedural dyspnea without hypoxia or chest pain, clear lung exam. This is likely related to Brilinta. If persistently bothersome may be changed to plavix by block handler. Continue ASA, Brillinta, Metoprolol, Atorvastatin Had low BP/HR overnight on metoprolol 25 mg bid so changed to metoprolol succinate 25 mg daily for discharge. counseled not to stop DAPT prematurely without consultation with block handler, not to run out Discussed with Dr. King. Will follow up with Dr. Dyson in clinic, cardiac rehab (2) Bipolar disorder, unspecified: Continue Wellbutrin and Lamictal (3) Gastro-esophageal reflux: Continue pantoprazole Plan CBC stable, BMP reviewed 07/20, unremarkable Prediabetic - A1c 5.8% - counseled diet and lifestyle modification, follow up in primary care Mild AST elevation - LFT normal on previous labs. Related to mild ischemia from STEMI should resolve Lipids - LDL 150s, initiated high intensity statin for STEMI TSH wnl Total Time Total Time Spent Total Time Spent (In Minutes): I personally spent: 35 today on clinical care activities including: reviewing chart notes and vital signs reviewing labs discussion with cardiology discussion with respite care provider examining and counseling the patient writing orders, discharge instructions documentation Discharge Plan Discharge Items Patient Disposition: Home - Self-Care Reason For Visit: stemi Discharge Diagnosis: Inferior STEMI Activity: Per Instructions section Non-emergency contact: Primary Care Provider and Wildlife Rehabilitator Call non-emergency contact if: you have any medication questions and your symptoms worsen Follow-up/Referrals: Leroy Dyson MD [Physician] - 07/24/23 10:00 am (With Dr. Shea) Joby Saha III, CRNP [Primary Care Provider] - 07/23/23 10:00 am Diet: Heart Healthy Addtl Attending Provider Instructions: You had a heart attack (ST-elevation CT) caused by blockage of your right coronary artery Three stents were placed It is very important to stay on dual antiplatelet therapy (Aspirin and Brilinta) until stopped by your block handler, typically a year after stenting. Stopping one or both of these medications early or running out could cause the stent to clot, resulting in a severe heart attack Shortness of breath is a common side effect of brilinta that you may be experiencing. If this persists the block handler may change you to plavix after a period of time Other medications to treat heart attack: B-rhonda - metoprolol Statin - to decrease cholesterol/inflammation - atorvastatin Your blood pressure is too low for KENNEDI inhibitor at this time Follow up with Dr. Dyson -cardiac rehab program will be helpful in returning to your normal level of exercise Follow up in primary care for impaired fasting glucose - based on elevated HgA1c - this means you are at increased risk of diabetes in the future -reduction in sugars and starchy foods, replacing them with vegetables, whole grains, and lean meats will help -weight loss and increased exercise will help, once you are cleared for an exercise program It was a pleasure taking care of you in the hospital Mary Cruz MD Pending Studies at Discharge: No Stand-Alone Forms: My [facility] [employer], Smoking Cessation Medications and DC Order Prescriptions: New Brilinta 90 mg Tablet 90 mg PO BID Qty: 60 1RF atorvastatin 40 mg Tablet 40 mg PO QAM Qty: 30 0RF metoprolol succinate 25 mg Tablet Extended Release 24 Hr 25 mg PO QAM Qty: 30 0RF nitroglycerin [Nitrostat] 0.4 mg Tablet, Sublingual 0.4 mg sublingual Q5M PRN (Reason: chest pain) Qty: 20 0RF Continued pantoprazole 40 mg tablet,delayed release (DR/EC) 40 mg PO QAM Qty: 90 3RF aspirin [Adult Aspirin Regimen] 81 mg tablet,delayed release (DR/EC) 81 mg PO QAM bupropion HCl 100 mg tablet 0 mg PO BID Rx Instructions: Spouse unsure if patient takes 100mg by mouth once daily (as listed on external med list) or twice daily (as patient was taking 100mg twice daily at one point) saw palmetto 80 mg Capsule 160 mg PO HS ascorbic acid (vitamin C) [Vitamin C] 500 mg Tablet 500 mg PO HS omega-3 fatty acids Capsule 1,000 mg PO QAM lamotrigine [Lamictal] 150 mg Tablet 150 mg PO BID mecobalamin (vitamin B12) 1,000 mcg tablet,disintegrating 5,000 mcg sublingual Q2D Rx Instructions: place tablet under tongue and allow to dissolve for at least30 secs before swallowing calcium polycarbophil [Fiber-Lax] 625 mg Tablet 625 mg PO BID Probiotic 20 billion cell Capsule 20,000 mmu cells PO QAM Rx Instructions: administer with a meal buspirone 5 mg tablet 5 mg PO TID PRN (Reason: Anxiety) hydroxyzine HCl 10 mg tablet 0 mg PO HS PRN (Reason: Sleep) Rx Instructions: Per spouse, the patient takes this medication at bedtime to help go to sleep, but unsure if patient takes 10mg/20mg/30mg. PreserVision AREDS 2,148 mcg-113 mg-45 mg-17.4mg Tablet 2 tab PO BID Rx Instructions: administer with AM and PM meals epinephrine [EpiPen 2-[place]] 0.3 mg/0.3 mL auto-injector 0 mg IM Q10M PRN (Reason: anaphylaxis) Rx Instructions: Per spouse, the patient isn't allergic to anything. But they have a neighbor who is allergic to bees so they have an epi-pen just in case as the pt has some bees on the property. Discharge Orders: Discharge Order (Routine); Ordered 07/21/23 Ordered By: Mary Munoz/Other Patient Handouts: Prediabetes, Heart Attack Dc Admission Data Admit Date/Time: 07/19/23 11:05 Attending Provider: Mary Cruz Admit Provider: Primo Osorio Primary Care Provider: Joby Saha III Other Providers: Thierno Steen; Moises Mayen Other Interventions: Discharge Summary Assessment (RN) Last Done: 07/21/23 11:24 Coding Level of Care Code 03120 INP/OBS DISCH >[address] elevation myocardial infarction involving right coronary artery I21.11 Involved coronary artery: right coronary artery Bipolar disorder, unspecified F31.9 Gastro-esophageal reflux K21.9
== END 2023-07-21 12:30 | disposition home or self-care (01) | DRG 321 ==
LOC: ED 10:20 → SUATTDRO 11:05 → 1E 11:05
PROC: CLB.CCO (2023-07-19 10:30)

== ENCOUNTER 2023-09-03 02:29 | Observation (INO) ==
--- NOTE | 2023-09-03 02:42 | Emergency Department Note ---
History of Present Illness General Chief Complaint: Chest Pain Stated Complaint: CHEST PAIN Time Seen by Provider: 09/03/23 02:31 History of Present Illness Provider Complaint: chest pain Time: 22:00 Duration: improved Onset: during rest Pain Location: substernal Pain Radiation: none Maximum Pain Intensity: 7 Current Pain Intensity: 1 Quality: + aching, + heaviness and + dull Relieved By: + nitroglycerin Exacerbated By: + nothing Context: no recent illness, no recent surgery, no recent immobilization, no recent travel, no new medications or no history of DVT/PE Associated symptoms: + dyspnea; no nausea, no vomiting, no diaphoresis, no syncope, no palpitations, no fever or no cough Treatments prior to arrival: aspirin and nitroglycerin (X2) Home Medications Medication Instructions Recorded Confirmed Type aspirin 81 mg tablet,delayed 81 mg PO QAM 09/13/19 09/03/23 History release (Adult Aspirin Regimen) ascorbic acid (vitamin C) 500 mg 500 mg PO HS 04/13/21 09/03/23 History tablet (Vitamin C) calcium polycarbophil 625 mg 625 mg PO BID 07/19/22 09/03/23 History tablet (Fiber-Lax) lactobacillus comb no.10 20 20,000 mmu cells PO QAM 07/19/22 09/03/23 History billion cell capsule (Probiotic) mecobalamin (vitamin B12) 1,000 5,000 mcg sublingual Q2D 07/19/22 09/03/23 History mcg disintegrating tablet,sublingual lamotrigine 150 mg tablet 150 mg PO BID 02/17/23 09/03/23 History (Lamictal) pantoprazole 40 mg tablet,delayed 40 mg PO QAM #90 tabs 06/24/23 09/03/23 Rx release buspirone 5 mg tablet 5 mg PO TID PRN Anxiety 07/19/23 09/03/23 History epinephrine 0.3 mg/0.3 mL 0.3 mg IM DIRECTED PRN 07/19/23 09/03/23 History injection, auto-injector (EpiPen anaphylaxis 2-[place]) vitamins A,C,O-emtq-hvsyfl 2,148 2 tab PO BID 07/19/23 09/03/23 History mcg-113 mg-45 mg-17.4 mg tablet (PreserVision AREDS) nitroglycerin 0.4 mg sublingual 0.4 mg sublingual Q5M PRN chest 07/21/23 09/03/23 Rx tablet (Nitrostat) pain #20 tabs bupropion HCl 100 mg tablet 100 mg PO DAILY 07/22/23 09/03/23 History hydroxyzine HCl 10 mg tablet 20 mg PO HS PRN Sleep 07/22/23 09/03/23 History atorvastatin 40 mg tablet 40 mg PO QAM #90 tabs 08/13/23 09/03/23 Rx metoprolol succinate 25 mg 25 mg PO QAM #90 tabs 08/13/23 09/03/23 Rx tablet,extended release 24 hr clopidogrel 75 mg tablet 75 mg PO DAILY #90 tabs 09/02/23 09/03/23 Rx clopidogrel 75 mg tablet 75 mg PO ONCE #4 tabs 09/02/23 09/03/23 Rx omega-3 fatty acids 1,000 mg 1,000 mg PO DAILY 09/03/23 09/03/23 History capsule saw palmetto 160 mg capsule 160 mg PO HS 09/03/23 09/03/23 History ticagrelor 90 mg tablet (Brilinta) 90 mg PO BID 09/03/23 09/03/23 History Allergies Allergy/AdvReac Type Severity Reaction Status Date / Time No Known Allergies Allergy Unknown Verified 09/03/23 02:44 Past Med/Surg History Medical History Myocardial Infarction History of COVID-19 x3; most recent May 12, 2022 > home test > cough, body aches, loss of taste and smell > all resolved Left rotator cuff tear Hx of Lyme disease couple years ago, no residual symptoms Pre-diabetes diet controlled Infraspinatus tendon tear Rupture of left proximal biceps tendon Rupture of left subscapularis tendon Rupture of left supraspinatus tendon COVID-19 History of back problems Osteoarthritis Rotator cuff tear BPH (benign prostatic hyperplasia) SLOW URINE STREAM PER PT Gastro-esophageal reflux Hypercholesterolemia BORDERLINE Bipolar disorder, unspecified Surgical History History of heart artery stent S/P arthroscopy of left shoulder p Left Shoulder Arthroscopy, Massive Rotator Cuff Repair, Subacromial Bursectomy, Biceps Tenodesis History of appendectomy History of tooth extraction History of repair of right rotator cuff History of esophagogastroduodenoscopy (EGD) HX ESOPHAGEAL STRETCHING History of colonoscopy 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 Family History Mother Breast cancer Other Family history of melanoma Denies family history of Colon cancer Ovarian cancer Prostate cancer Myocardial infarction Social History Smoking Status: Never smoker Tobacco Type: Cigarettes packs per day: 2.5; Second Hand Exposure: No; Do You Dip or Chew Tobacco: No; Hx Alcohol Use: No Hx Substance Use: No Preferred Language: Persian Communication Ability: Effective Visual Impairment: No Limitations Hearing Ability: Normal Career Technical Education Teacher Required: No Beliefs That Will Affect Care: None marital status: Current Living Situation: Spouse current occupational status: employed 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 have: 5 Feels Safe at Home: Yes Childhood Exposure to Second-Hand Smoke: No Diet: regular caffeine: Yes during the past year weight has: remained stable Dental Care, Regularly: Yes Physical Activity Frequency: Daily Seatbelt Use: always Sunscreen Use: Yes Assistive Devices: None Physical Exam Vital Signs Vital Signs - 24 hr 09/03/23 02:32 09/03/23 02:32 09/03/23 02:32 Temperature 36.7 C Temperature Source Oral Pulse Rate 63 Pulse Rate [Apical] Respiratory Rate 13 Respiratory Depth Normal Normal Blood Pressure 112/77 Blood Pressure [Right Arm] Blood Pressure Mean 88 Blood Pressure Mean [Right Arm] Pulse Oximetry 94 Oxygen Delivery Method Room Air Room Air Sepsis Recent Fever Within 48 Hours No Sepsis New/Unexplained Change in Mental Status No Sepsis Action Taken by Nursing No Action Required 09/03/23 02:34 09/03/23 03:30 Temperature Temperature Source Pulse Rate 64 Pulse Rate [Apical] 61 Respiratory Rate 16 Respiratory Depth Normal Blood Pressure Blood Pressure [Right Arm] 129/71 Blood Pressure Mean Blood Pressure Mean [Right Arm] 90 Pulse Oximetry 96 Oxygen Delivery Method Sepsis Recent Fever Within 48 Hours Sepsis New/Unexplained Change in Mental Status Sepsis Action Taken by Nursing Physical Exam GENERAL: oriented to person, place, and time. appears well-developed and well- nourished. HENT: Exam performed. - Head: Normocephalic and atraumatic. EYES: Conjunctivae and EOM are normal. Right eye exhibits no discharge. Left eye exhibits no discharge. No scleral icterus. NECK: Normal range of motion. Neck supple. No JVD present. CV: Normal rate, regular rhythm, normal heart sounds and intact distal pulses. There is no peripheral edema. Palpable radial pulses bue. PULM/CHEST: Effort normal and breath sounds normal. No respiratory distress. No stridor. no wheezes. no rales. ABD: The abdomen is soft. There is no tenderness. NEURO: Motor and sensation grossly intact. SKIN: Skin is warm and dry. He is not diaphoretic. PSYCH: normal mood and affect. Behavior is normal. Judgment and thought content normal. Course Course 0231: The patient was evaluated in room A2. A complete history and physical exam was performed Cardiac monitoring: An order was placed for continuous cardiac monitoring. The monitor shows a rate of 60 with sinus rhythm interpreted by me 0355: Vital signs stable. Labs and imaging within normal limits. Patient will be admitted to the hospitalist team for chest pain rule out ACS. Dr. Beaulieu notified. Medical Decision Making Medical Records Attestation: I reviewed the patient's medical records. Medical records narrative: External medical records reviewed. Patient suffered a STEMI on July 19, 2023. He had successful placement of a stent in his coronary arteries. Laboratory Data Attestation: I reviewed the patient's lab results. 09/03/23 02:38 09/03/23 02:38 Labs: Lab Results 09/03/23 Range/Units 02:38 WBC 6.69 (4.8-10.8) K/ul RBC 4.82 (4.70-6.10) M/uL Hgb 14.2 (14.0-18.0) g/dl Hct 42.1 (42.0-52.0) % MCV 87.3 (80.0-100.0) fL MCH 29.5 (25.0-34.0) pg MCHC 33.7 (32.0-36.0) g/dL RDW Std Deviation 42.2 (36.4-46.3) fL RDW Coeff of Lc 13.2 (11.5-14.5) % Plt Count 260 (130-400) K/uL MPV 9.4 (9.4-12.4) fL Immature Gran % (Auto) 0.4 % Neut % (Auto) 55.5 % Lymph % (Auto) 27.8 % [place] % (Auto) 10.6 % Eos % (Auto) 4.8 % Baso % (Auto) 0.9 % Neut # (Auto) 3.71 (1.40-6.50) K/uL Lymph # (Auto) 1.86 (1.20-3.40) K/uL [place] # (Auto) 0.71 H (0.11-0.59) K/uL Eos # (Auto) 0.32 (0.00-0.50) K/uL Baso # (Auto) 0.06 (0.00-0.20) K/uL Immature Gran # (Auto) 0.03 (0.01-0.20) K/uL PT 10.7 (9.0-12.0) Seconds INR 1.0 (0.9-1.1) APTT 30 (21-31) Seconds PTT Ratio 1.1 Sodium 143 (136-145) mmol/L Potassium 3.9 (3.5-5.1) mmol/L Chloride 111 H (98-107) mmol/L Carbon Dioxide 24 (21-32) mmol/L Anion Gap 8 (3-11) BUN 16 (6-23) mg/dl Creatinine 1.04 (0.6-1.4) mg/dl Est Cr Clr Drug Dosing 65.3 ml/min Est GFR ( Amer) 86.3 ml/min Est GFR (Non-Af Amer) 74.5 ml/min BUN/Creatinine Ratio 15.4 (10-20) Glucose 102 H (70-99(Fasting)) mg/dl Calcium 8.7 (8.6-10.3) mg/dl Troponin I High Sens 9.5 (0-20) pg/ml Lipase 12 (11-82) U/L Imaging Data Chest x-ray: Attestation: I personally reviewed and interpreted this imaging study as follows: My impression: Chest x-ray negative. Airway clear. No pneumothorax. No consolidation. No cardiomegaly or cephalization.. No free air under the diaphragm. No fractures of the skeletal structures. ECG Data Attestation: I personally reviewed and interpreted this ECG as follows: Indication: chest pain Rate (beats per minute): 63 Rhythm: normal sinus Findings: + T-wave inversion (lead III and aVF only); no ST depression, no ST elevation or no prolonged QT Comparison ECG Date: from (June 2023) Change: no significant change Additional Comments: EKG #2 at 0247: Sinus rhythm with a rate of 63. UT QRS and QTc intervals within normal limits. No ST elevation or ST depression. T wave inversions in leads III and aVF. No significant change from previous EKG. [facility] Narrative 0231: The patient was evaluated in room A2. A complete history and physical exam was performed Cardiac monitoring: An order was placed for continuous cardiac monitoring. The monitor shows a rate of 60 with sinus rhythm interpreted by me 0355: Vital signs stable. Labs and imaging within normal limits. Patient will be admitted to the hospitalist team for chest pain rule out ACS. Dr. Beaulieu notified. Impression & Plan Chest pain Discharge Plan Visit Data Chief Complaint: Chest Pain Stated Complaint: CHEST PAIN ED Provider: Rajiv Anthony Discharge Problem: Chest pain Patient Disposition: Being Evaluated by Hospitalist Forms Stand Alone Forms: [facility] Prescriptions Prescriptions: No Action pantoprazole 40 mg tablet,delayed release (DR/EC) 40 mg PO QAM Qty: 90 3RF bupropion HCl 100 mg tablet 100 mg PO DAILY hydroxyzine HCl 10 mg tablet 20 mg PO HS PRN (Reason: Sleep) metoprolol succinate 25 mg tablet extended release 24 hr 25 mg PO QAM Qty: 90 3RF atorvastatin 40 mg tablet 40 mg PO QAM Qty: 90 3RF aspirin [Adult Aspirin Regimen] 81 mg tablet,delayed release (DR/EC) 81 mg PO QAM clopidogrel 75 mg tablet 75 mg PO ONCE Qty: 4 0RF Rx Instructions: NOT STARTED YET. NOT RECIEVED YET. take 4 tabs (300mg loading dose) 12 hours after last ticagrelor (brilinta) dose. clopidogrel 75 mg tablet 75 mg PO DAILY Qty: 90 3RF Rx Instructions: NOT STARTED YET. NOT RECIEVED YET. ascorbic acid (vitamin C) [Vitamin C] 500 mg Tablet 500 mg PO HS lamotrigine [Lamictal] 150 mg Tablet 150 mg PO BID mecobalamin (vitamin B12) 1,000 mcg tablet,disintegrating 5,000 mcg sublingual Q2D Rx Instructions: place tablet under tongue and allow to dissolve for at least30 secs before swallowing Fiber-Lax 625 mg Tablet 625 mg PO BID Probiotic 20 billion cell Capsule 20,000 mmu cells PO QAM Rx Instructions: administer with a meal buspirone 5 mg tablet 5 mg PO TID PRN (Reason: Anxiety) PreserVision AREDS 2,148 mcg-113 mg-45 mg-17.4mg Tablet 2 tab PO BID Rx Instructions: administer with AM and PM meals epinephrine [EpiPen 2-[place]] 0.3 mg/0.3 mL auto-injector 0.3 mg IM DIRECTED PRN (Reason: anaphylaxis) Rx Instructions: Per spouse, the patient isn't allergic to anything. But they have a neighbor who is allergic to bees so they have an epi-pen just in case as the pt has some bees on the property. nitroglycerin [Nitrostat] 0.4 mg Tablet, Sublingual 0.4 mg sublingual Q5M PRN (Reason: chest pain) Qty: 20 0RF omega-3 fatty acids 1,000 mg Capsule 1,000 mg PO DAILY saw palmetto 160 mg Capsule 160 mg PO HS Rx Instructions: give with meal/snack Brilinta 90 mg tablet 90 mg PO BID Rx Instructions: CONTINUE TAKING UNTIL PLAVIX IS RECIEVED VIA MAIL ORDER. Referrals Referrals: Joby Saha III, CRNP [Primary Care Provider] - Discharge Problem: Chest pain Qualifiers: Chest pain type: unspecified Qualified Code(s): R07.9 - Chest pain, unspecified
[2023-09-03 03:08] LABS: Basophils # (auto) 0.06 K/uL (0.00-0.20); Basophils % (auto) 0.9 %; Eosinophils # (auto) 0.32 K/uL (0.00-0.50); Eosinophils % (auto) 4.8 %; Hematocrit (blood only) 42.1 % (42.0-52.0); Hemoglobin 14.2 g/dl (14.0-18.0); Immature Granulocytes # (auto) 0.03 K/uL (0.01-0.20); Immature Granulocytes % (auto) 0.4 %; Lymphocytes # (auto) 1.86 K/uL (1.20-3.40); Lymphocytes % (auto) 27.8 %; Mean Corpuscular Hemoglobin 29.5 pg (25.0-34.0); Mean Corpuscular Hgb Conc 33.7 g/dL (32.0-36.0); Mean Corpuscular Volume 87.3 fL (80.0-100.0); Mean Platelet Volume 9.4 fL (9.4-12.4); Monocytes # (auto) 0.71 K/uL (0.11-0.59); Monocytes % (auto) 10.6 %; Neutrophils # (auto) 3.71 K/uL (1.40-6.50); Neutrophils % (auto) 55.5 %; Platelet Count 260 K/uL (130-400); RDW Coefficient of Variation 13.2 % (11.5-14.5); RDW Standard Deviation 42.2 fL (36.4-46.3); Red Blood Count 4.82 M/uL (4.70-6.10); White Blood Count 6.69 K/ul (4.8-10.8)
[2023-09-03 03:16] LABS: BUN Creatinine Ratio 15.4 (10-20); Calcium 8.7 mg/dl (8.6-10.3); Creatinine Clr Calc Pharmacy 65.3 ml/min; Est GFR (African American) 86.3 ml/min; Est GFR (Non-African American) 74.5 ml/min; Partial Thromboplastin Ratio 1.1; Partial Thromboplastin Time 30 Seconds (21-31); Potassium 3.9 mmol/L (3.5-5.1); Prothrombin Time 10.7 Seconds (9.0-12.0)
[2023-09-03 03:23] LABS: Troponin I High Sensitivity 9.5 pg/ml (0-20)
--- NOTE | 2023-09-03 04:01 | History & Physical Report ---
Date of Service September 03, 2023 Assessment & Plan (1) Chest pain: Plan: 68yo male with history of CAD s/p inferior STEMI in June 2023 with NIMA x 3 placed. Patient with borderline LAD disease not stented at that time. Echo on 07/20/23 with low normal E of 50-55%, WMA consistent with inferior STEMI. Patient follows with Cardiology - last seen by Dr. Vargas on 09/02/23. He is participating in cardiac rehab and is compliant with his medications. Troponin x 1 is unremarkable EKG with no acute ischemic changes Patient remains chest pain free -Observation to medical with telemetry -Trend troponin x 3 sets -If elevation of troponin would obtain repeat echocardiogram and consult Cardiology -Continue ASA 81mg po daily -Continue Brillinta 90mg po BID. Patient developed a cough secondary to Brillinta - he is planning to transition to Plavix. He has been prescribed a Plavix load and prescription by Dr. Vargas and is awaiting its arrival by mail. For now, he continues on ASA and Brillinta for DAPT. -DAPT to be continued for at least 6 months uninterrupted, ideally 1-2 years due to extent of his stenting -Continue Metoprolol -Continue Atorvastatin -EKG PRN chest pain -Nitro PRN chest pain (2) Coronary artery disease: Plan: Patient with known CAD s/p inferior STEMI with NIMA x 3 placed in June 2023 -Continue ASA, Brillinta, Atorvastatin and Metoprolol -Trend troponin Plan GERD: Chronic, stable -Continue Protonix at home dose of 40mg po daily Bipolar disorder: Chronic. Stable -Continue home Lamictal 150mg po BID -Continue Bupropion 100mg po daily -Continue Buspar 5mg po TID PRN History of Present Illness Chief Complaint: chest pain Primary Care Provider: Joby Saha, III, FREDRICK Samson Hooks is a pleasant 68yo male with history of CAD s/p inferior STEMI in June 2023 with NIMA placed to the PDA and NIMA x 2 to the proximal and mid-RCA. He had borderline disease in the LAD which was not stented at that time. Patient is active and is participating in cardiac rehabilitation without difficulty. He is compliant with his medications - DAPT with ASA and Brillinta, Metoprolol and Atorvastatin. Patient was in his usual state of health until yesterday around 23:00 when he was doing work on a tractor and developed bandlike chest pain, 7/10 in severity with some radiation down the right arm and shortness of breath. He took some Pepto bismol without improvement. His pain improved after some time but then returned several times throughout the night waking him from sleep which prompted him to call EMS. He took a Nitro and ASA x 4 at home which improved his pain and was administered Nitro by EMS which further improved his pain. Presently chest pain free. No additional complaints. In the ER he is afebrile, HD stable, NAD Allergies Allergy/AdvReac Type Severity Reaction Status Date / Time No Known Allergies Allergy Unknown Verified 09/03/23 02:44 Home Medications Medication Instructions Recorded Confirmed Type aspirin 81 mg tablet,delayed 81 mg PO QAM 09/13/19 09/03/23 History release (Adult Aspirin Regimen) ascorbic acid (vitamin C) 500 mg 500 mg PO HS 04/13/21 09/03/23 History tablet (Vitamin C) calcium polycarbophil 625 mg 625 mg PO BID 07/19/22 09/03/23 History tablet (Fiber-Lax) lactobacillus comb no.10 20 20,000 mmu cells PO QAM 07/19/22 09/03/23 History billion cell capsule (Probiotic) mecobalamin (vitamin B12) 1,000 5,000 mcg sublingual Q2D 07/19/22 09/03/23 History mcg disintegrating tablet,sublingual lamotrigine 150 mg tablet 150 mg PO BID 02/17/23 09/03/23 History (Lamictal) pantoprazole 40 mg tablet,delayed 40 mg PO QAM #90 tabs 06/24/23 09/03/23 Rx release buspirone 5 mg tablet 5 mg PO TID PRN Anxiety 07/19/23 09/03/23 History epinephrine 0.3 mg/0.3 mL 0.3 mg IM DIRECTED PRN 07/19/23 09/03/23 History injection, auto-injector (EpiPen anaphylaxis 2-[place]) vitamins A,C,N-cgys-tmvzqt 2,148 2 tab PO BID 07/19/23 09/03/23 History mcg-113 mg-45 mg-17.4 mg tablet (PreserVision AREDS) nitroglycerin 0.4 mg sublingual 0.4 mg sublingual Q5M PRN chest 07/21/23 09/03/23 Rx tablet (Nitrostat) pain #20 tabs bupropion HCl 100 mg tablet 100 mg PO DAILY 07/22/23 09/03/23 History hydroxyzine HCl 10 mg tablet 20 mg PO HS PRN Sleep 07/22/23 09/03/23 History atorvastatin 40 mg tablet 40 mg PO QAM #90 tabs 08/13/23 09/03/23 Rx metoprolol succinate 25 mg 25 mg PO QAM #90 tabs 08/13/23 09/03/23 Rx tablet,extended release 24 hr clopidogrel 75 mg tablet 75 mg PO DAILY #90 tabs 09/02/23 09/03/23 Rx clopidogrel 75 mg tablet 75 mg PO ONCE #4 tabs 09/02/23 09/03/23 Rx omega-3 fatty acids 1,000 mg 1,000 mg PO DAILY 09/03/23 09/03/23 History capsule saw palmetto 160 mg capsule 160 mg PO HS 09/03/23 09/03/23 History ticagrelor 90 mg tablet (Brilinta) 90 mg PO BID 09/03/23 09/03/23 History Past Med/Surg History Medical History Myocardial Infarction History of COVID-19 x3; most recent May 12, 2022 > home test > cough, body aches, loss of taste and smell > all resolved Left rotator cuff tear Hx of Lyme disease couple years ago, no residual symptoms Pre-diabetes diet controlled Infraspinatus tendon tear Rupture of left proximal biceps tendon Rupture of left subscapularis tendon Rupture of left supraspinatus tendon COVID-19 History of back problems Osteoarthritis Rotator cuff tear BPH (benign prostatic hyperplasia) SLOW URINE STREAM PER PT Gastro-esophageal reflux Hypercholesterolemia BORDERLINE Bipolar disorder, unspecified Surgical History History of heart artery stent S/P arthroscopy of left shoulder p Left Shoulder Arthroscopy, Massive Rotator Cuff Repair, Subacromial Bursectomy, Biceps Tenodesis History of appendectomy History of tooth extraction History of repair of right rotator cuff History of esophagogastroduodenoscopy (EGD) HX ESOPHAGEAL STRETCHING History of colonoscopy 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 Family History Mother Breast cancer Other Family history of melanoma Denies family history of Colon cancer Ovarian cancer Prostate cancer Myocardial infarction Social History Smoking Status: Never smoker Tobacco Type: Cigarettes packs per day: 2.5; Second Hand Exposure: No; Do You Dip or Chew Tobacco: No; Hx Alcohol Use: No Hx Substance Use: No Preferred Language: Korean Communication Ability: Effective Visual Impairment: No Limitations Hearing Ability: Normal Physician/Allergy/Immunology Required: No Beliefs That Will Affect Care: None marital status: Current Living Situation: Spouse current occupational status: employed 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 have: 5 Feels Safe at Home: Yes Childhood Exposure to Second-Hand Smoke: No Diet: regular caffeine: Yes during the past year weight has: remained stable Dental Care, Regularly: Yes Physical Activity Frequency: Daily Seatbelt Use: always Sunscreen Use: Yes Assistive Devices: None Review of Systems Review of Systems: All systems reviewed & are unremarkable except as noted in HPI & below Physical Exam Physical Exam: General: patient resting comfortably, NAD, non-toxic in appearance, AA&O x 4 Skin: warm, dry, intact, no rashes or lesions HEENT: NC/AT, PERRL, EOMI, anicteric sclera, conjunctiva without injection, external ear normal to inspection and nontender, nares patent, moist mucus membranes, dentition intact, no oropharyngeal lesions, neck supple, trachea midline, no LAD, no thyromegaly, no JVD Heart: +S1/S2, regular, no m/r/g Lungs: equal air entry bilaterally, no rales/rhonchi/wheezes Abd: +BS, soft, NT/ND, no masses/organomegaly/ascites Ext: warm, 2+ pulses in UE/LE bilaterally, no clubbing/cyanosis or edema Neuro: nonfocal, patient AA&O x 4, speech intact, no facial droop Results & Data Results & Data Vital Signs (Past 12 Hours) Vital Signs Temp Pulse Pulse Resp BP BP Pulse Ox 09/03/23 03:30 61 16 129/71 96 09/03/23 02:34 64 09/03/23 02:32 09/03/23 02:32 36.7 C 63 13 112/77 94 O2 Del Method 09/03/23 03:30 09/03/23 02:34 09/03/23 02:32 Room Air 09/03/23 02:32 Room Air Laboratory Results Laboratory Results WBC 6.69 K/ul (4.8-10.8) 09/03/23 02:38 RBC 4.82 M/uL (4.70-6.10) 09/03/23 02:38 Hgb 14.2 g/dl (14.0-18.0) 09/03/23 02:38 Hct 42.1 % (42.0-52.0) 09/03/23 02:38 MCV 87.3 fL (80.0-100.0) 09/03/23 02:38 MCH 29.5 pg (25.0-34.0) 09/03/23 02:38 MCHC 33.7 g/dL (32.0-36.0) 09/03/23 02:38 RDW Std Deviation 42.2 fL (36.4-46.3) 09/03/23 02:38 RDW Coeff of Lc 13.2 % (11.5-14.5) 09/03/23 02:38 Plt Count 260 K/uL (130-400) 09/03/23 02:38 MPV 9.4 fL (9.4-12.4) 09/03/23 02:38 Immature Gran % (Auto) 0.4 % 09/03/23 02:38 Neut % (Auto) 55.5 % 09/03/23 02:38 Lymph % (Auto) 27.8 % 09/03/23 02:38 [place] % (Auto) 10.6 % 09/03/23 02:38 Eos % (Auto) 4.8 % 09/03/23 02:38 Baso % (Auto) 0.9 % 09/03/23 02:38 Neut # (Auto) 3.71 K/uL (1.40-6.50) 09/03/23 02:38 Lymph # (Auto) 1.86 K/uL (1.20-3.40) 09/03/23 02:38 [place] # (Auto) 0.71 K/uL (0.11-0.59) H 09/03/23 02:38 Eos # (Auto) 0.32 K/uL (0.00-0.50) 09/03/23 02:38 Baso # (Auto) 0.06 K/uL (0.00-0.20) 09/03/23 02:38 Immature Gran # (Auto) 0.03 K/uL (0.01-0.20) 09/03/23 02:38 PT 10.7 Seconds (9.0-12.0) 09/03/23 02:38 INR 1.0 (0.9-1.1) 09/03/23 02:38 APTT 30 Seconds (21-31) 09/03/23 02:38 PTT Ratio 1.1 09/03/23 02:38 Sodium 143 mmol/L (136-145) 09/03/23 02:38 Potassium 3.9 mmol/L (3.5-5.1) 09/03/23 02:38 Chloride 111 mmol/L (98-107) H 09/03/23 02:38 Carbon Dioxide 24 mmol/L (21-32) 09/03/23 02:38 Anion Gap 8 (3-11) 09/03/23 02:38 BUN 16 mg/dl (6-23) 09/03/23 02:38 Creatinine 1.04 mg/dl (0.6-1.4) 09/03/23 02:38 Est Cr Clr Drug Dosing 65.3 ml/min 09/03/23 02:38 Est GFR ( Amer) 86.3 ml/min 09/03/23 02:38 Est GFR (Non-Af Amer) 74.5 ml/min 09/03/23 02:38 BUN/Creatinine Ratio 15.4 (10-20) 09/03/23 02:38 Glucose 102 mg/dl (70-99(Fasting)) H 09/03/23 02:38 Calcium 8.7 mg/dl (8.6-10.3) 09/03/23 02:38 Troponin I High Sens 9.5 pg/ml (0-20) 09/03/23 02:38 Lipase 12 U/L (11-82) 09/03/23 02:38 Diagnostic Findings CXR - per my interpretation with no acute issues ECG Additional Comments: EKG with NSR at 63bpm, normal axis, FX=410, QRS=82, ZLu=042, no acute ischemic changes. Evidence of prior inferior infarct present. EKG repeat at 02:47 unchanged PG Care Time/CCT Total # of Minutes Spent Total Time Spent with Patient: Total time spent is greater than 50% in coordination of care (as documented) at patient's floor/unit and/or counseling patient: Coding Level of Care Code 64983 INT INP/OBS CARE 2/55MIN Diagnoses Chest pain R07.9 Chest pain type: unspecified Coronary artery disease I25.10 (1) Chest pain Chest pain type: unspecified Qualified Code(s): R07.9 - Chest pain, unspecified
[2023-09-03] MEDS ORDERED: ACETAMINOPHEN 325 MG TAB PO PRN (05:12)
[2023-09-03] MEDS ORDERED: ONDANSETRON INJ 2 MG/ML 2 ML VIAL IV PRN (05:12)
[2023-09-03] MEDS ORDERED: NITROGLYCERIN SL 0.4 MG/TAB TAB SL PRN (05:12)
[2023-09-03] MEDS ORDERED: busPIRone 5 MG TAB PO PRN (05:12)
[2023-09-03] MEDS ORDERED: hydrOXYzine HCl 10 MG TAB PO PRN (05:12)
--- NOTE | 2023-09-03 07:15 | XRay Report ---
XR chest 1V portable CLINICAL HISTORY: Chest pain, nonspecific TECHNIQUE: Single frontal radiograph of the chest was obtained. Comparison: Comparison is made to chest radiograph 07/19/2023 FINDINGS: No lines and tubes are seen. The cardiomediastinal silhouette is normal. The lungs are clear. No evid ence of pleural effusion or pneumothorax. IMPRESSION: No acute chest disease. ACT 112: Negative or not required by law. Electronically signed by: Mukesh Borjas M.D. 09/03/2023 7:13 AM
[2023-09-03] MEDS: lamoTRIgine 100 MG TAB PO SCH (08:23)
[2023-09-03] MEDS: ATORVASTATIN 40 MG TAB PO SCH (08:24)
[2023-09-03] MEDS: METOPROLOL SUCC 25MG EXT REL TAB PO SCH (08:24)
[2023-09-03] MEDS: buPROPion HCl 100 MG TABLET PO SCH (08:24)
[2023-09-03] MEDS: PANTOprazole 40 MG TAB PO SCH (08:24)
[2023-09-03] MEDS: ASPIRIN 81 MG ECTAB PO SCH (08:24)
[2023-09-03] MEDS: TICAGRELOR 90 MG TAB PO SCH (08:24)
--- NOTE | 2023-09-03 12:24 | XCELERA ---
[id number] \\[id number]
--- NOTE | 2023-09-03 13:51 | Cardiology Consultation ---
Date of Consultation September 03, 2023 Assessment & Plan (1) Chest pain: 2. Coronary artery diseaseinferior STEMI post 3 NIMA to RCA/PDA; with residual moderate to severe small LAD disease 3. Dyslipidemia 4. Hypertension Patient here after episode of chest pain lasting for approximately 1 hour, different than what he had with his CT. Chest pain-free since admission and HS TropI/ECG/echo reassuring. Very low suspicion for stent thrombosis or recurrent ACS. Chest pain likely noncardiac and at this time do not feel it needs additional cardiac testing. From a cardiac standpoint okay with discharge today. Continue DAPT with aspirin, ticagrelor. Transition to clopidogrel per Dr. Vargas. Continue current metoprolol, statin Can continue cardiac rehab as scheduled. Follow-up with Dr. Vargas as scheduled. History of Present Illness Attending Physician: Nancy Pelletier MD History of Present Illness Mr. Hooks is a very pleasant 68-year-old man with a history of coronary artery disease post inferior STEMI 06/2023 admitted in the setting of recurrent chest pain. Patient previously underwent PCI with 3 stents placed to his RCA/PDA 07/19/[address] Mayen. At that time was noted to have moderate to severe mid LAD disease at bifurcation with diagonal. Decision to medically manage residual CAD. LVEF at that time preserved with basal inferior wall motion abnormality. HS TropI to 26,000. Since hospitalization has been following with Dr. Vargas. Has largely done well, participating with cardiac rehab. Has had some intermittent dyspnea attributed to ticagrelor and plan to switch to clopidogrel. Yesterday evening while working on his tractor developed a band of discomfort across his chest. Initially attributed to GI and took Pepto-Bismol with some questionable relief. Later was awoken from sleep with recurrent pain different than pain he has had in the past or with his CT. Symptoms lasted a total of around 1 hour. No associated palpitations, shortness of breath or presyncope. Pain resolved with sublingual nitroglycerin x 2 in ED. Since admission no recurrent chest pain. HS TropI negative x 2 < 10. ECG unchanged with no dynamic ST changes, prior inferior Q waves. Underwent repeat echo today which showed EF 55 to 60% and mild to moderate basal to mid inferior hypokinesis. 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 Non- smoker. Allergies Allergy/AdvReac Type Severity Reaction Status Date / Time No Known Allergies Allergy Unknown Verified 09/03/23 02:44 Home Medications Medication Instructions Recorded Confirmed Type aspirin 81 mg tablet,delayed 81 mg PO QAM 09/13/19 09/03/23 History release (Adult Aspirin Regimen) ascorbic acid (vitamin C) 500 mg 500 mg PO HS 04/13/21 09/03/23 History tablet (Vitamin C) calcium polycarbophil 625 mg 625 mg PO BID 07/19/22 09/03/23 History tablet (Fiber-Lax) lactobacillus comb no.10 20 20,000 mmu cells PO QAM 07/19/22 09/03/23 History billion cell capsule (Probiotic) mecobalamin (vitamin B12) 1,000 5,000 mcg sublingual Q2D 07/19/22 09/03/23 History mcg disintegrating tablet,sublingual lamotrigine 150 mg tablet 150 mg PO BID 02/17/23 09/03/23 History (Lamictal) pantoprazole 40 mg tablet,delayed 40 mg PO QAM #90 tabs 06/24/23 09/03/23 Rx release buspirone 5 mg tablet 5 mg PO TID PRN Anxiety 07/19/23 09/03/23 History epinephrine 0.3 mg/0.3 mL 0.3 mg IM DIRECTED PRN 07/19/23 09/03/23 History injection, auto-injector (EpiPen anaphylaxis 2-[place]) vitamins A,C,W-quhu-yqashs 2,148 2 tab PO BID 07/19/23 09/03/23 History mcg-113 mg-45 mg-17.4 mg tablet (PreserVision AREDS) nitroglycerin 0.4 mg sublingual 0.4 mg sublingual Q5M PRN chest 07/21/23 09/03/23 Rx tablet (Nitrostat) pain #20 tabs bupropion HCl 100 mg tablet 100 mg PO DAILY 07/22/23 09/03/23 History hydroxyzine HCl 10 mg tablet 20 mg PO HS PRN Sleep 07/22/23 09/03/23 History atorvastatin 40 mg tablet 40 mg PO QAM #90 tabs 08/13/23 09/03/23 Rx metoprolol succinate 25 mg 25 mg PO QAM #90 tabs 08/13/23 09/03/23 Rx tablet,extended release 24 hr clopidogrel 75 mg tablet 75 mg PO DAILY #90 tabs 09/02/23 09/03/23 Rx clopidogrel 75 mg tablet 75 mg PO ONCE #4 tabs 09/02/23 09/03/23 Rx omega-3 fatty acids 1,000 mg 1,000 mg PO DAILY 09/03/23 09/03/23 History capsule saw palmetto 160 mg capsule 160 mg PO HS 09/03/23 09/03/23 History ticagrelor 90 mg tablet (Brilinta) 90 mg PO BID 09/03/23 09/03/23 History Patient History Medical History Myocardial Infarction History of COVID-19 x3; most recent May 12, 2022 > home test > cough, body aches, loss of taste and smell > all resolved Left rotator cuff tear Hx of Lyme disease couple years ago, no residual symptoms Pre-diabetes diet controlled Infraspinatus tendon tear Rupture of left proximal biceps tendon Rupture of left subscapularis tendon Rupture of left supraspinatus tendon COVID-19 History of back problems Osteoarthritis Rotator cuff tear BPH (benign prostatic hyperplasia) SLOW URINE STREAM PER PT Gastro-esophageal reflux Hypercholesterolemia BORDERLINE Bipolar disorder, unspecified Surgical History History of heart artery stent S/P arthroscopy of left shoulder p Left Shoulder Arthroscopy, Massive Rotator Cuff Repair, Subacromial Bursectomy, Biceps Tenodesis History of appendectomy History of tooth extraction History of repair of right rotator cuff History of esophagogastroduodenoscopy (EGD) HX ESOPHAGEAL STRETCHING History of colonoscopy 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 Family History Mother Breast cancer Other Family history of melanoma Denies family history of Colon cancer Ovarian cancer Prostate cancer Myocardial infarction Social History Smoking Status: Never smoker Tobacco Type: Cigarettes packs per day: 2.5; Second Hand Exposure: No; Do You Dip or Chew Tobacco: No; Hx Alcohol Use: Yes Alcohol type: beer Alcohol Intake Frequency: Monthly or Less Hx Substance Use: No Preferred Language: Polish Communication Ability: Effective Visual Impairment: No Limitations Hearing Ability: Normal Exercise Instruct Required: No Beliefs That Will Affect Care: None marital status: Current Living Situation: Spouse Current Living Situation Comment: home current occupational status: employed 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 have: 5 Feels Safe at Home: Yes Safety Concerns: Feels Safe At This Time Childhood Exposure to Second-Hand Smoke: No Diet: regular caffeine: Yes during the past year weight has: remained stable Dental Care, Regularly: Yes Physical Activity Frequency: Daily Seatbelt Use: always Sunscreen Use: Yes Assistive Devices: None Review of Systems Review of Systems: All systems reviewed & are unremarkable except as noted in HPI & below Physical Exam Physical Exam: General: Comfortable HEENT: Sclerae anicteric Lungs: Clear to auscultation bilaterally, no crackles or wheezes Cardiac: Regular rate and rhythm, no murmurs. Vascular: 2+ radial, DP pulses. No bruits Abdomen: Soft, nontender Extremities: Well perfused, no peripheral edema Neuro: Nonfocal Psych: Alert orient x3, normal affect and mood Results & Data Vital Signs (Past 12 Hours) Vital Signs Temp Pulse Pulse Resp BP BP Pulse Ox 09/03/23 12:00 63 18 09/03/23 11:50 69 15 09/03/23 11:40 61 24 09/03/23 11:34 63 15 09/03/23 11:20 56 L 19 09/03/23 11:10 54 L 14 09/03/23 11:07 59 L 14 09/03/23 10:01 54 L 18 09/03/23 09:51 55 L 17 09/03/23 09:40 54 L 16 95 09/03/23 09:30 54 L 37 H 09/03/23 09:20 54 L 19 09/03/23 09:10 58 L 19 09/03/23 09:00 73 17 09/03/23 08:50 67 10 L 09/03/23 08:40 65 21 09/03/23 08:30 65 19 119/90 96 09/03/23 08:20 67 16 09/03/23 08:10 59 L 18 09/03/23 08:00 57 L 16 09/03/23 07:50 68 19 09/03/23 07:40 64 20 09/03/23 07:33 57 L 09/03/23 07:30 62 20 09/03/23 07:20 59 L 17 09/03/23 07:10 56 L 17 09/03/23 07:09 56 L 18 09/03/23 05:18 63 18 123/82 95 09/03/23 03:30 61 16 129/71 96 09/03/23 02:34 64 09/03/23 02:32 09/03/23 02:32 98.1 F 63 13 112/77 94 O2 Del Method 09/03/23 12:00 09/03/23 11:50 09/03/23 11:40 09/03/23 11:34 09/03/23 11:20 09/03/23 11:10 09/03/23 11:07 09/03/23 10:01 09/03/23 09:51 09/03/23 09:40 09/03/23 09:30 09/03/23 09:20 09/03/23 09:10 09/03/23 09:00 09/03/23 08:50 09/03/23 08:40 09/03/23 08:30 09/03/23 08:20 09/03/23 08:10 09/03/23 08:00 09/03/23 07:50 09/03/23 07:40 09/03/23 07:33 09/03/23 07:30 09/03/23 07:20 09/03/23 07:10 09/03/23 07:09 09/03/23 05:18 Room Air 09/03/23 03:30 09/03/23 02:34 09/03/23 02:32 Room Air 09/03/23 02:32 Room Air PG Care Time/CCT Total # of Minutes Spent Total Time Spent with Patient: Total time spent is greater than 50% in coordination of care (as documented) at patient's floor/unit and/or counseling patient: Coding Level of Care Code 59874 IN/OBS CONSULT LVL 4,60M Diagnoses Chest pain R07.9 Chest pain type: unspecified (1) Chest pain Chest pain type: unspecified Qualified Code(s): R07.9 - Chest pain, unspecified
--- NOTE | 2023-09-03 13:57 | Discharge Summary ---
Discharge Summary Date of Service September 03, 2023 Notes For Next Care Provider None Medication Changes From Visit None Admission HPI Per Admitting Provider Samson Hooks is a pleasant 68yo male with history of CAD s/p inferior STEMI in June 2023 with NIMA placed to the PDA and NIMA x 2 to the proximal and mid-RCA. He had borderline disease in the LAD which was not stented at that time. Patient is active and is participating in cardiac rehabilitation without difficulty. He is compliant with his medications - DAPT with ASA and Brillinta, Metoprolol and Atorvastatin. Patient was in his usual state of health until yesterday around 23:00 when he was doing work on a tractor and developed bandlike chest pain, 7/10 in severity with some radiation down the right arm and shortness of breath. He took some Pepto bismol without improvement. His pain improved after some time but then returned several times throughout the night waking him from sleep which prompted him to call EMS. He took a Nitro and ASA x 4 at home which improved his pain and was administered Nitro by EMS which further improved his pain. Presently chest pain free. No additional complaints. In the ER he is afebrile, HD stable, NAD Principal Dx & Hospital Course #1 = Principal Diagnosis (1) Chest pain: 68yo male with history of CAD s/p inferior STEMI in June 2023 with NIMA x 3 placed. Patient with borderline LAD disease not stented at that time. Echo on 07/20/23 with low normal E of 50-55%, WMA consistent with inferior STEMI. Patient follows with Cardiology - last seen by Dr. Vargas on 09/02/23. He is participating in cardiac rehab and is compliant with his medications. Presented with substernal chest pain with some radiation down the right arm and shortness of breath that did not improve with Pepto-Bismol but did improve after he returned through the night with nitroglycerin and aspirin. He does report eating a lot of acidic food prior to development of symptoms but was concerned when it did not go away with Pepto-Bismol Troponin x 2 were normal EKG with no acute ischemic changes Patient remains chest pain free since admission Seen by cardiology they had very low suspicion for stent thrombosis or recurrent acute coronary syndrome. Did not feel he needed additional cardiac testing Continue current medications with planned transition to clopidogrel as per his primary contracts analyst. Continue cardiac rehab as scheduled and follow-up with cardiology as an outpatient Echocardiogram here with LVEF 55-60%, mild LVH, moderate basal to mid inferior hypokinesis, no changes from previous echocardiogram on 07/20/2023 Chest pain likely from GERD-advised could take Protonix twice daily for 1 to 2 weeks if has recurrent symptoms (2) Coronary artery disease: Patient with known CAD s/p inferior STEMI with NIMA x 3 placed in June 2023 -Continue ASA, Brillinta, Atorvastatin and Metoprolol Plan GERD: Chronic, stable -Continue Protonix at home dose of 40mg po daily but could increase to twice daily as above Bipolar disorder: Chronic. Stable -Continue home Lamictal 150mg po BID -Continue Bupropion 100mg po daily -Continue Buspar 5mg po TID PRN Discharge Exam Constitutional WD/WN, vitals as above Neck trachea midline, no thyromegaly Respiratory normal respiratory effort, lungs clear to auscultation Cardiovascular RRR, no murmur, no edema Neurologic moves all extremities and awake; no focal motor deficits Psychiatric A+Ox3, euthymic affect Lymphatic no lymphedema Updated Medication List Medication Instructions Recorded Confirmed Type aspirin 81 mg tablet,delayed 81 mg PO QAM 09/13/19 09/03/23 History release (Adult Aspirin Regimen) ascorbic acid (vitamin C) 500 mg 500 mg PO HS 04/13/21 09/03/23 History tablet (Vitamin C) calcium polycarbophil 625 mg 625 mg PO BID 07/19/22 09/03/23 History tablet (Fiber-Lax) lactobacillus comb no.10 20 20,000 mmu cells PO QAM 07/19/22 09/03/23 History billion cell capsule (Probiotic) mecobalamin (vitamin B12) 1,000 5,000 mcg sublingual Q2D 07/19/22 09/03/23 History mcg disintegrating tablet,sublingual lamotrigine 150 mg tablet 150 mg PO BID 02/17/23 09/03/23 History (Lamictal) pantoprazole 40 mg tablet,delayed 40 mg PO QAM #90 tabs 06/24/23 09/03/23 Rx release buspirone 5 mg tablet 5 mg PO TID PRN Anxiety 07/19/23 09/03/23 History epinephrine 0.3 mg/0.3 mL 0.3 mg IM DIRECTED PRN 07/19/23 09/03/23 History injection, auto-injector (EpiPen anaphylaxis 2-[place]) vitamins A,C,W-eybz-rhkkek 2,148 2 tab PO BID 07/19/23 09/03/23 History mcg-113 mg-45 mg-17.4 mg tablet (PreserVision AREDS) nitroglycerin 0.4 mg sublingual 0.4 mg sublingual Q5M PRN chest 07/21/23 09/03/23 Rx tablet (Nitrostat) pain #20 tabs bupropion HCl 100 mg tablet 100 mg PO DAILY 07/22/23 09/03/23 History hydroxyzine HCl 10 mg tablet 20 mg PO HS PRN Sleep 07/22/23 09/03/23 History atorvastatin 40 mg tablet 40 mg PO QAM #90 tabs 08/13/23 09/03/23 Rx metoprolol succinate 25 mg 25 mg PO QAM #90 tabs 08/13/23 09/03/23 Rx tablet,extended release 24 hr clopidogrel 75 mg tablet 75 mg PO DAILY #90 tabs 09/02/23 09/03/23 Rx clopidogrel 75 mg tablet 75 mg PO ONCE #4 tabs 09/02/23 09/03/23 Rx omega-3 fatty acids 1,000 mg 1,000 mg PO DAILY 09/03/23 09/03/23 History capsule saw palmetto 160 mg capsule 160 mg PO HS 09/03/23 09/03/23 History ticagrelor 90 mg tablet (Brilinta) 90 mg PO BID 09/03/23 09/03/23 History Hospital Stay Data Consultations 09/03/23 03:37 ED Decision to Admit Stat 09/03/23 10:40 Consult Cardiology Routine Diagnostic Imagining Performed Echocardiogram Pending Results Patient Have Any Pending Studies at Discharge: No Discharge Instructions Given to Patient (Per Discharging Provider) You were admitted for observation for chest pain and ruled out for acute coronary syndrome. Your pain may have been from heartburn. You could take your Protonix twice daily for the next 1 to 2 weeks if you have any further symptoms. Please continue with cardiac rehab as before. It was a pleasure taking care of you! Nancy Pelletier MD Total Time Total Time Spent Total Time Spent (In Minutes): 35 minutes Total Time Includes: Examination of the Patient, Discharge Planning, Medication Reconciliation and Communication With Other Providers (Cardiology) Coding Level of Care Code 16389 INP/OBS DISCH >30 MIN Diagnoses Chest pain R07.9 Chest pain type: unspecified Coronary artery disease I25.10
--- NOTE | 2023-09-05 05:37 | Electrocardiogram Report ---
Test Reason : Blood Pressure : / mmHG Vent. Rate : 063 BPM Atrial Rate : 063 BPM P-R Int : 178 ms QRS Dur : 082 ms QT Int : 406 ms P-R-T Axes : 017 -06 -19 degrees QTc Int : 415 ms Normal sinus rhythm Inferior infarct (cited on or before 20-JUL-2023) Abnormal ECG When compared with ECG of 20-JUL-2023 11:24, T wave amplitude has decreased in Anterolateral leads Confirmed by Td Delarosa ([id number]) on 09/05/2023 5:37:04 AM Referred By: REFERRED SELF Confirmed By:Td Delarosa
== END 2023-09-03 14:00 | disposition home or self-care (01) ==
LOC: EDINP 02:29 → ED 02:29 → SUATTDRO 04:01 → EDINP 13:55